=== PATIENT | female | born 1955 | race Caucasian/White ===

== ENCOUNTER 2019-04-02 02:09 | Outpatient (CLI) | payer OTHER, SELFPAY ==
[2019-04-02 12:03] LABS: ALT 19 U/L (12-78); AST 13 U/L (15-37); Albumin 3.5 g/dL (3.4-5.0); Alkaline Phosphatase 88 U/L (46-116); Anion Gap 9.9 mmol/L (3-11); BUN 15 mg/dL (7-18); Bilirubin, Total 0.6 mg/dL (0.2-1.0); CO2 26.1 mmol/L (21.0-32.0); CREATININE 0.78 mg/dL (0.55-1.02); Calcium 8.4 mg/dL (8.5-10.1); Chloride 104 mmol/L (98-107); Glucose 83 mg/dL (70-100); Sodium 140 mmol/L (136-145)
[2019-04-02 12:09] LABS: HCT 43.2 % (36.0-46.0); HGB 14.2 g/dL (12.0-15.5); Mean Corp. HGB Concentration 32.9 g/dL (32.0-36.0); Mean Corpuscular Hemoglobin 27.7 pg (27.0-33.0); Mean Corpuscular Volume 84.2 fL (80-95); Mean Platelet Volume 10.4 fL (8.0-11.0); Platelet Count 205 x1000/uL (130-400); RBC 5.13 m/cumm (4.00-5.20); RBC Distribution Width 13.3 % (11.7-14.6); White Blood Cell Count 3.51 k/cumm (4.4-10.8)
== END 2019-04-02 02:29 ==
DX: K62.5 Hemorrhage of anus and rectum (principal); R53.83 Other fatigue; Z80.0 Family history of malignant neoplasm of digestive organs
CPT/HCPCS: 36415; 80053; 85027

== ENCOUNTER 2020-08-10 09:01 | Outpatient (CLI) | payer OTHER, SELFPAY ==
[2020-08-10 13:25] LABS: ALT 17 U/L (14-59); AST 12 U/L (15-37); Albumin 3.7 g/dL (3.4-5.0); Alkaline Phosphatase 89 U/L (46-116); Anion Gap 3.4 mmol/L (3-11); BUN 12 mg/dL (7-18); Bilirubin, Total 0.7 mg/dL (0.2-1.0); CO2 30.6 mmol/L (21.0-32.0); CREATININE 0.75 mg/dL (0.55-1.02); Calcium 8.6 mg/dL (8.5-10.1); Chloride 106 mmol/L (98-107); Glucose 89 mg/dL (74-106); Potassium 4.6 mmol/L (3.5-5.1); Sodium 140 mmol/L (136-145); Total Protein 6.3 g/dL (6.4-8.2)
== END 2020-08-10 09:21 ==
DX: R53.83 Other fatigue (principal); Z68.31 Body mass index [BMI] 31.0-31.9, adult; R03.0 Elevated blood-pressure reading, without diagnosis of hypertension
CPT/HCPCS: 36415; 80053

== ENCOUNTER 2020-08-24 12:31 | Emergency (ER) | payer OTHER, SELFPAY ==
--- NOTE | 2020-08-24 12:30 | DI.RAD_ITS ---
EXAM: XR PELVIS AP CLINICAL HISTORY: Fall, low back pain. TECHNIQUE: 2D digital imaging was performed. COMPARISON: No exams were available for comparison FINDINGS: BONES: No acute fracture is present. No bony destructive lesion is seen. JOINTS: No dislocation present. No joint space narrowing is present. SOFT TISSUE: Normal. IMPRESSION: Unremarkable radiographs of the pelvis. DATA REPOSITORY: RADIATION DOSE DELIVERED:
[2020-08-24 12:35] VITALS: BP 166/94; PULSE 91; RESP 16; TEMP 37.2; O2SAT 100
--- NOTE | 2020-08-24 12:43 | ED.GENADUL_ITS ---
Discharge Plan Disposition Patient Disposition: HOME Condition: Stable Discharge Details Clinical Impression: Lumbar contusion Primary Care Provider: Vita Carmona ED Provider: Александр Penaloza Home Meds and New Rx's Prescriptions: New methocarbamol 500 mg tablet 500 mg PO Q6H PRN (Reason: Back pain or spasm) Qty: 14 RF: 0 Continued Complete Multivitamin tablet 1 tab PO DAILY RF: 0 calcium carb and citrate-vitD3 1 EACH tablet extended release 1 ea PO DAILY RF: 0 Discharge Instructions Instructions: Contusion in Adults (ED) Additional Instructions: Use ice 20 minutes at a time to reduce pain and swelling. May alternate with heat as we discussed. May continue Tylenol and/or ibuprofen as needed for pain. May use methocarbamol as prescribed, as needed for muscular pain and spasm. Return if you develop increasing pain, inability urinate, or any other acute concerns Medical Decision Making 65-year-old female slipped on wet ground and fell onto her back outside her place of work. She did not suffer a loss of consciousness and denies neck/chest/abdomen/thoracic pain. She complains of low back pain. She has mild diffuse tenderness of the lumbar spine without focal step-off or deformity appreciated. She has normal motor function of the lower extremity and sensation is intact including saddle distribution. Patient given parenteral analgesia, referred for plain radiographs. X-rays as read by Dr Walsh, unremarkable XR of pelvis, LSpine no acute fracture or subluxation. We will trial methocarbamol as needed for pain. She may use heat and/or ice at home. Discussed with the patient and her at the bedside prior to discharge. HPI General Mode of arrival: EMS . Date/Time Provider Initiated Documentation: 08/24/20 12:45 . Limitations to Documentation: no limitations . Information obtained by: patient . History of Present Illness 65 year old F presents to the emergency department with the chief complaint of Slip and fall, low back pain, described as moderate and similar to prior episodes, Quality is described as dull and constant, and is localized to the back. Patient reports no radiation. Patient started experiencing this minute(s) and it has been constant. Rest improves symptom(s), Movement worsens symptoms . Patient notes denies chest pain, shortness of breath, syncope and weakness. Patient did receive the following treatments prior to arrival, none Related Data Home Medications Medication Instructions Recorded Confirmed calcium carb and citrate-vitD3 1 ea PO DAILY 10/09/17 10/14/20 multivitamin,[id number]-[id number] 1 tab PO DAILY 07/15/18 08/24/20 methocarbamol 500 mg PO Q6H PRN #14 tab 08/24/20 Previous Rx's Medication Instructions Recorded methocarbamol 500 mg PO Q6H PRN #14 tab 08/24/20 Allergies Allergy/AdvReac Type Severity Reaction Status Date / Time No Known Allergies Allergy Verified 08/24/20 12:37 General Stated Complaint: Nk/Back Pain ZIGGY: 3 Review of Systems Narrative: No loss of consciousness. Denies head/neck/chest/thoracic back pain. No weakness or numbness. 6 systems reviewed and otherwise negative [facility] Medical History Elevated BP without diagnosis of hypertension Encounter for annual physical exam Increased body mass index (BMI) Surgical History Abdominal hysterectomy (~02/2013) section 1980,1982 Colonoscopy - MAC (08/26/17) Family History Mother , AGE 76 Diabetes Colorectal cancer Father , AGE 49 Heart disease Sister , AGE 38 Hyperlipidemia Breast cancer Sister , age 76 Diabetes Essential hypertension Parkinsons Anemia Sister Diabetes Maternal Grandfather Heart disease Paternal Grandfather , age 60 Heart disease Maternal Grandmother Diabetes Son No problems noted. Son No problems noted. 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 Pets and animals: Yes Pets and animals: dog(s) Sexually active: Yes Do you think of yourself as: straight/heterosexual Current gender identity: female What is your relationship status?: How often do you talk on the phone with friends or family?: three or more times per week How often do you get together with friends or relatives?: three or more times per week Do you belong to any clubs or organized social groups?: no Panel score (0-1 are the most socially isolated patients): 2 What type of physical activity do you participate in: walking Duration: 15-30 minutes/day Frequency: 1-2 times per week Seatbelt use: always 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 Pleasant, well groomed, interactive. HEAD: Normocephalic, atraumatic ENT: Mucous membranes moist, oropharynx unremarkable, External ear exam unremarkable EYES: PERRL, EOMI NECK: Full ROM, no JAKI, no menigismus CHEST/RESP: Nontender, clear to auscultation bilateral, no wheeze/rhonchi/rales CARDIOVASCULAR: RRR, no murmur, rub [place]. 2+ Rad pulse bilateral ABDOMEN: Soft, nontender, no mass. +Bowel sounds Back: Diffuse lumbar tenderness to palpation. No thoracic tenderness or step- off. EXT: Full ROM, no edema, no rash, normal sensation throughout. Neuro: Grossly normal neurologic exam, conversant, interactive. Psych: Speech fluent, thoughts congruent, affect normal Course Vital Signs Vital signs: Vital Signs Temperature 37.2 C 08/24/20 12:35 Pulse 91 H 08/24/20 12:35 Respiratory Rate 16 08/24/20 12:35 Blood Pressure 166/94 H 08/24/20 12:35 Pulse Oximetry 100 08/24/20 12:35 Temperature 37.2 C 08/24/20 12:35 Temperature Source Tympanic 08/24/20 12:35 Pulse 91 H 08/24/20 12:35 Respiratory Rate 16 08/24/20 12:35 Respiratory Effort Non-Labored 08/24/20 12:37 Blood Pressure 166/94 H 08/24/20 12:35 Blood Pressure Position Sitting 08/24/20 12:35 Pulse Oximetry 100 08/24/20 12:35 Oxygen Delivery Method Room Air 08/24/20 12:35 Oxygen Flow Rate 0 08/24/20 12:35 Pain Level 6 08/24/20 12:35
[2020-08-24] MEDS: ACETAMINOPHEN 1,000 MG/100 ML BTL 400 MG IVPB (13:01)
[2020-08-24] MEDS: Ketorolac 30 MG/ML VIAL IVP (13:01)
--- NOTE | 2020-08-24 14:04 | DI.RAD_ITS ---
EXAM: XR LUMBAR SPINE AP, LAT CLINICAL HISTORY: fall, L spine pain. TECHNIQUE: 2D digital imaging was performed. COMPARISON: CR THORACIC SPINE from 04/29/2016 DX DEXA BONE DENSITY WITH DERIK from 08/06/2017 FINDINGS: BONES: No fracture or destructive lesion. Vertebral bodies are unremarkable. No facet hypertrophy amos ntified. DISKS: Intervertebral disc spaces are maintained. ALIGNMENT: Lumbar spinal alignment is within normal limits. SOFT TISSUE: Normal. IMPRESSION: No acute fractures or subluxations seen in the lumbar spine. DATA REPOSITORY: RADIATION DOSE DELIVERED:
[2020-08-24 14:43] VITALS: BP 150/91; PULSE 88; RESP 16; TEMP 36.9; O2SAT 100
== END 2020-08-24 14:43 | disposition home or self-care (01) ==
PROVIDERS: Emergency Provider Emergency Medicine
DX: S30.0XXA Contusion of lower back and pelvis, initial encounter (principal); W18.39XA Other fall on same level, initial encounter
CPT/HCPCS: 96365; 96375; 99284; 72100; 72170; J0131; J1885

== ENCOUNTER 2020-12-06 01:46 | Outpatient (CLI) | payer OTHER, SELFPAY ==
--- NOTE | 2020-12-06 11:45 | DI.MRI_ITS ---
EXAM: MR LOWER JOINT LT WO CLINICAL HISTORY: Continued left hip pain, s/p PT for 6 weeks,S/P FALL, W19.XXXA. TECHNIQUE: Multiplanar multisequence MRI was performed. COMPARISON: CR XR PELVIS AP from 08/24/2020 FINDINGS: The patient is status post hysterectomy. There is mild sigmoid diverticulosis. The bladder is unre markable. Marrow signal is normal. There is no evidence of fracture. No joint effusions or soft tissue hemato mas are seen. The SI joints and pubic symphysis are unremarkable. There is edema in the soft tissue s around the greater trochanter. No tendon disruption or focal fluid collection is seen. IMPRESSION: Soft tissue edema around the left greater trochanter and gluteus medius and minimus tendons could be secondary to direct trauma or represent mild distal muscle tear or tendinopathy. DATA REPOSITORY:
== END 2020-12-06 02:06 ==
PROVIDERS: Visit Provider Nurse Practitioner Family
DX: R60.0 Localized edema (principal); M25.552 Pain in left hip
CPT/HCPCS: 73721

== ENCOUNTER 2021-08-07 03:01 | Outpatient (CLI) | payer OTHER, SELFPAY ==
[2021-08-07 12:50] LABS: ALT 23 U/L (14-59); AST 13 U/L (15-37); Albumin 3.9 g/dL (3.4-5.0); Alkaline Phosphatase 92 U/L (46-116); Anion Gap 8.1 mmol/L (3-11); BUN 15 mg/dL (7-18); Bilirubin, Total 0.7 mg/dL (0.2-1.0); CO2 28.9 mmol/L (21.0-32.0); CREATININE 0.9 mg/dL (0.55-1.02); Calcium 8.6 mg/dL (8.5-10.1); Calculated LDL 103 mg/dL (<100); Chloride 104 mmol/L (98-107); Cholesterol 183 mg/dL (<200); Glucose 84 mg/dL (74-106); HDL Cholesterol 66 mg/dL (40-60); Potassium 4.2 mmol/L (3.5-5.1); Sodium 141 mmol/L (136-145); Total Protein 6.5 g/dL (6.4-8.2); Triglyceride 70 mg/dL (<150)
== END 2021-08-07 03:02 | disposition home or self-care (01) ==
DX: E78.5 Hyperlipidemia, unspecified; R03.0 Elevated blood-pressure reading, without diagnosis of hypertension; Z00.00 Encounter for general adult medical examination without abnormal findings
CPT/HCPCS: 36415; 80053; 80061

== ENCOUNTER 2022-08-10 13:21 | Outpatient (REF) | payer MEDICARE, SELFPAY | END 2022-08-10 13:22 | disposition home or self-care (01) | LOC: LBN 13:21 | PROVIDERS: Visit Provider Nurse Practitioner Family | DX: J02.9 Acute pharyngitis, unspecified (principal) | CPT/HCPCS: 87070 ==

== ENCOUNTER 2023-04-11 21:24 | Outpatient (REF) | payer MEDICARE, SELFPAY | END 2023-04-11 21:25 | disposition home or self-care (01) | LOC: LBN 21:24 | PROVIDERS: PCP Nurse Practitioner Family; Visit Provider Nurse Practitioner Family | DX: N30.90 Cystitis, unspecified without hematuria (principal) | CPT/HCPCS: 87077; 87086; 87186 ==

== ENCOUNTER 2023-04-17 04:12 | Outpatient (CLI) | payer MEDICARE, SELFPAY ==
[2023-04-17 12:21] LABS: Abs Immature Grans 0.04 10^3/uL (0.0-0.06); Absolute Basophil Count 0.04 10^3/uL (0.0-0.2); Absolute Lymphocyte Count 1.07 10^3/uL (1.2-3.4); Absolute Monocyte Count 0.39 10^3/uL (0.1-0.8); Absolute Neutrophil Count 2.79 10^3/uL (1.2-6.7); Basophils % 0.9; Eosinophils % 2.3; HCT 42.8 % (36.0-46.0); HGB 14.2 g/dL (11.2-15.7); Immature Grans % 0.9; Lymphocytes % 24.2; MCH 27.9 pg (27.0-33.0); MCHC 33.2 % (32.0-36.0); MCV 84 fL (80-95); MPV 9.6 fL (8.0-11.0); Monocytes % 8.8; Neutrophils % 62.9; Platelet Count 302 10^3/uL (130-400); RBC 5.09 10^6/uL (3.93-5.22); RDW 13.4 % (11.7-14.6); RDW-SD 41.3 fL; WBC 4.43 10^3/uL (4.4-10.8)
[2023-04-17 12:33] LABS: ALT 28 U/L (14-59); AST 19 U/L (15-37); Albumin 3.6 g/dL (3.4-5.0); Alkaline Phosphatase 83 U/L (46-116); Anion Gap 4.7 mmol/L (3-11); BUN 15 mg/dL (7-18); Bilirubin, Total 0.6 mg/dL (0.2-1.0); CO2 28.3 mmol/L (21.0-32.0); CREATININE 0.9 mg/dL (0.55-1.02); Calcium 8.5 mg/dL (8.5-10.1); Chloride 104 mmol/L (98-107); Estimated GFR 70.07 (mL/min/1.73m2); Glucose 93 mg/dL (74-106); Potassium 3.8 mmol/L (3.5-5.1); Sodium 137 mmol/L (136-145); Total Protein 6.7 g/dL (6.4-8.2)
[2023-04-17 12:40] LABS: Hemoglobin A1C 4.6 % (<5.7)
[2023-04-18 10:27] LABS: Lyme Ab w Rflx to Lyme Confirm Negative (Negative)
[2023-04-20 15:57] LABS: Anaplasma phagocytophilum Negative (Negative); B. miyamotoi PCR Negative (Negative); Babesia divergens/MO-1 Negative (Negative); Babesia duncani Negative (Negative); Babesia microti Negative (Negative); Ehrlichia chaffeensis Negative (Negative); Ehrlichia ewingii/canis Negative (Negative); Ehrlichia muris eauclairensis Negative (Negative)
== END 2023-04-17 04:13 | disposition home or self-care (01) ==
LOC: LOS 04:12
PROVIDERS: Nurse Practitioner Family; PCP Nurse Practitioner Family; Visit Provider Nurse Practitioner Family
DX: R73.01 Impaired fasting glucose (principal); R50.9 Fever, unspecified; N30.90 Cystitis, unspecified without hematuria; W57.XXXD Bitten or stung by nonvenomous insect and other nonvenomous arthropods, subsequent encounter; M25.561 Pain in right knee; M25.562 Pain in left knee; M79.604 Pain in right leg; M79.605 Pain in left leg
CPT/HCPCS: 36415; 80053; 87798; 83036; 85025; 86618

== ENCOUNTER 2024-05-05 16:23 | Emergency (ER) | payer MEDICARE, SELFPAY ==
[2024-05-05 16:37] VITALS: BP 182/107; PULSE 98; RESP 16; TEMP 37.2; O2SAT 97
[2024-05-05 16:59] VITALS: BP 182/107; PULSE 98; RESP 20; TEMP 37.2; O2SAT 97
--- NOTE | 2024-05-05 17:17 | ED.GENADUL_ITS ---
Discharge Plan Discharge Details Chief Complaint: FlankPain Primary Care Provider: Johan Zamarripa ED Provider: Judi Davidson Home Meds and New Rx's Prescriptions: No Action Complete Multivitamin tablet 1 tab PO DAILY ibuprofen 200 mg capsule 200 mg PO Q6H PRN calcium carb and citrate-vitD3 1 EACH tablet extended release 1 ea PO DAILY HPI General Date/Time Provider Initiated Documentation: 05/05/24 16:53 . HPI Narrative: Syeda is a 68-year-old female who presents to the emergency department today for evaluation of right flank pain. She reports that this started 3 days ago, has been worsening in intensity since onset. This is elicited with any movement, has been slightly improved with ibuprofen/Tylenol and heating pads. She denies associated fever/chills, rash, shortness of breath, chest pain, nausea/vomiting, change in bowel or bladder function, blood in urine. She does have a history abdominal surgeries, had full hysterectomy and multiple C-sections. No known digestive disorders or abnormal colonoscopies. No history of bleeding disorders. No recent trauma, saddle anesthesia, weakness/numbness in her legs. Related Data Home Medications Medication Instructions Recorded Confirmed calcium carb,cit ER 600 mg-vit D3 1 ea PO DAILY 08/19/17 05/05/24 12.5 mcg (500 unit) tablet,ext.rel multivitamin,zj-pmrq-lytrawzo 1 tab PO DAILY 07/15/18 05/05/24 (Complete Multivitamin tablet) ibuprofen 200 mg capsule 200 mg PO Q6H PRN 08/28/21 05/05/24 Allergies Allergy/AdvReac Type Severity Reaction Status Date / Time No Known Allergies Allergy Verified 05/05/24 16:01 General Stated Complaint: FlankPain ZIGGY: 3 Review of Systems Narrative: see HPI Exam Const General: cooperative, healthy appearing, comfortable and no acute distress Nutritional Appearance: average body habitus Resp Effort & Inspection: normal respiratory effort and able to speak in complete sentences Auscultation: clear to auscultation bilaterally Cardio Rate: regular rate Rhythm: regular rhythm GI Inspection: no abdominal wall ecchymosis, no edema and non-distended Palpation: soft, not rigid and tender (R flank) Auscultation: normal bowel sounds Course Vital Signs Vital signs: Vital Signs Temperature 37.2 C 05/05/24 16:37 Pulse 98 H 05/05/24 16:37 Respiratory Rate 16 05/05/24 16:37 Blood Pressure 182/107 H 05/05/24 16:37 Pulse Oximetry 97 05/05/24 16:37 Temperature 37.2 C 05/05/24 16:59 Pulse 98 H 05/05/24 16:59 Respiratory Rate 20 05/05/24 16:59 Respiratory Effort Normal 05/05/24 16:59 Blood Pressure 182/107 H 05/05/24 16:59 Pulse Oximetry 97 05/05/24 16:59 Oxygen Delivery Method Room Air 05/05/24 16:59 Pain Level 8 05/05/24 16:59 Medical Decision Making Syeda is a 68-year-old female who presents to the emergency department today for evaluation of right flank pain. She reports that this started 3 days ago, has been worsening in intensity since onset. This is elicited with any movement, has been slightly improved with ibuprofen/Tylenol and heating pads. She denies associated fever/chills, rash, shortness of breath, chest pain, nausea/vomiting, change in bowel or bladder function, blood in urine. She does have a history abdominal surgeries, had full hysterectomy and multiple C-sections. No known digestive disorders or abnormal colonoscopies. No history of bleeding disorders. No recent trauma, saddle anesthesia, weakness/numbness in her legs. Physical exam remarkable for tenderness to palpation along right flank just below ribs. No overlying rashes or ecchymosis. Abdomen is soft, nondistended, otherwise nontender to palpation with normoactive bowel sounds. No CVA tenderne ss. Easy work of breathing, lung sounds clear bilaterally. Normal heart sounds. DDx includes but is not limited to: Biliary duct obstruction, gallstone, cholecystitis, pyelonephritis, nephrolithiasis, gastritis I independently interpreted the following tests: CBC, CMP and lipase reassuring. CT scan reassuring, there are calcified gallstones present within the gallbladder. Inflammatory bowel wall thickening is not consistent with clinical picture, likely unrelated. While in the emergency department Syeda received IV Toradol with good improvement in symptoms. Unclear etiology of abdominal pain, workup today was reassuring. Possible cholelithiasis. Recommend PCP follow-up for outpatient ultrasound for further evaluation. She does have a colonoscopy scheduled for this fall. Reviewed red flags indicate need for return to emergency care, as well as symptomatic management. Imaging Data Radiologic Study: Radiologist's impression: PROCEDURE INFORMATION: Exam: CT Abdomen And Pelvis With Contrast Exam date and time: 05/05/2024 7:35 PM Age: 68 years old Clinical indication: Other: R flank pain TECHNIQUE: Imaging protocol: Computed tomography of the abdomen and pelvis with contrast. Radiation optimization: All CT scans at this facility use at least one of these dose optimization techniques: automated exposure control; mA and/or kV adjustment per patient size (includes targeted exams where dose is matched to clinical indication); or iterative reconstruction. Contrast material: OMNIPAQUE 350; Contrast volume: 100 ml; Contrast route: INTRAVENOUS (IV); COMPARISON: CR XR PELVIS AP 08/24/2020 1:34 PM FINDINGS: Lungs: The lungs are normal. Pleural spaces: There is no evidence of pneumothorax. There are no pleural effusions present. Heart: The cardiac structures are normal. Liver: Low-attenuation lesion measuring 5.5 mm within the left liver lobe series 4, image 9 and multiple smaller low-attenuation lesions seen within the right and left liver lobes consistent with small hepatic cysts. Gallbladder and biliary ducts: There are calcified gallstones present within the gallbladder lumen. There is no wall thickening or pericholecystic fluid. Findings consistant with cholelitiasis without cholecystitis. Pancreas: There is mild pancreatic atrophy and fatty replacement. Spleen: The spleen is enlarged. The spleen otherwise appears normal. Adrenal glands: The adrenal glands are normal. Kidneys and ureters: The kidneys are normal. Stomach and bowel: There are fluid-filled loops of small bowel with air-fluid levels. No significant bowel wall thickening or inflammatory changes. No evidence of obstruction. Consider early enteritis. There is no evidence of intestinal obstruction. There is focal narrowing and mild inflammatory bowel wall thickening involving the mid transverse colon, mid and distal descending colon. Colonic fatty mural change present, most often a normal variation but sometimes seen in patients with chronic inflammatory process such as ulcerative colitis or Crohn's disease.There is bowel wall edema. No significant inflammatory change seen within the peritoneal fat and mesentery. This likely represents mild early acute colitis. An underlying mass is not excluded. Mild diverticulosis is present in the sigmoid and descending colon. No evidence of diverticulitis. Appendix: A normal appendix is identified. There is no evidence of distention or periappendiceal inflammation to suggest appendicitis. Intraperitoneal space: There is no free intraperitoneal air. There is no evidence of free intraperitoneal or pelvic fluid. Vasculature: The aorta is unremarkable without evidence of significant atherosclerosis or aneurysmal disease. The peripheral arterial vascular system visualized is unremarkable. The portal venous system visualized is unremarkable. The peripheral venous vascular system visualized is unremarkable. Lymph nodes: There is no evidence of lymphadenopathy. Urinary bladder: There is mild nonspecific bladder wall thickening. This may be related to incomplete bladder filling. Reproductive: There has been a hysterectomy. No adnexal cysts or masses are identified. Bones/joints: There is severe compression fracture of the 12th thoracic vertebral body. This has shown severe progression compared to the prior study of 08/24/2020 and is age indeterminate at this point. Acute compression fracture superimposed on chronic compression fracture cannot be excluded. Soft tissues: The extra-abdominal soft tissues are normal. IMPRESSION: 1. There is severe compression fracture of the 12th thoracic vertebral body. This has shown severe progression compared to the prior study of 08/24/2020 and is age indeterminate at this point. Acute compression fracture superimposed on chronic compression fracture cannot be excluded. 2. There are fluid-filled loops of small bowel with air-fluid levels. No significant bowel wall thickening or inflammatory changes. No evidence of obstruction. Consider early enteritis. 3. There is focal narrowing and mild inflammatory bowel wall thickening involving the mid transverse colon, mid and distal descending colon. Colonic fatty mural change present, most often a normal variation but sometimes seen in patients with chronic inflammatory process such as ulcerative colitis or Crohn's disease.There is bowel wall edema. No significant inflammatory change seen within the peritoneal fat and mesentery. This likely represents mild early acute colitis. An underlying mass is not excluded. 4. Mild diverticulosis is present in the sigmoid and descending colon. No evidence of diverticulitis. 5. Findings consistant with cholelitiasis without cholecystitis. Quality:[facility] Health Related Social Needs: No Data to Display PFSH All Active Problems (Updated 08/25/22 @ 10:58 by Johan Harrington NP) Seborrheic keratoses (Acute) Tendonitis of left hip (Acute) Fall (Acute) Elevated BP without diagnosis of hypertension (Acute) Encounter for annual physical exam (Acute) Increased body mass index (BMI) (Acute) Painless rectal bleeding (Acute) Fatigue (Acute) Actinic keratoses (Acute) Family history of GI malignancy (Acute) colon ca-mother. Last colonoscopy was 08/26/17. She does not think she wants to repeat in the future. Family hx-breast malignancy (Acute) Sister at age 38. She continue with yearly mammograms. Surgical History Abdominal hysterectomy (~02/2013) section 1980,1982 Colonoscopy - MAC (08/26/17) Family History Mother , AGE 76 Diabetes Colorectal cancer Father , AGE 49 Heart disease Sister , AGE 38 Hyperlipidemia Breast cancer Sister , age 76 Diabetes Essential hypertension Parkinsons Anemia Sister Diabetes Maternal Grandfather Heart disease Paternal Grandfather , age 60 Heart disease Maternal Grandmother Diabetes Son No problems noted. Son No problems noted. Social History (Updated 09/10/23 @ 07:56 by Janelle Watson) Smoking/Tobacco Use Status: Former Tobacco Use tobacco type: cigarettes Quit Date: 11/11/79 Second Hand Exposure: Yes Smoking risk assessment performed?: Yes Alcohol Intake: current Alcohol Intake frequency: a few times a month Alcohol type: wine Drug use: Never Substance use type: does not use Adopted: No Caregiver/Support person: No Foster care: No Household members: spouse Housing: house Number of Children: 2 number of grandchildren: 3 Communication Needs: None Education Level: college Do you need help understanding health information?: Rarely current occupation: Retired Pets and animals: Yes Pets and animals: dog(s) Sexually active: Yes Do you think of yourself as: straight/heterosexual Current gender identity: female What is your relationship status?: How often do you talk on the phone with friends or family?: twice per week How often do you get together with friends or relatives?: twice per week Do you belong to any clubs or organized social groups?: no Panel score (0-1 are the most socially isolated patients): 2 Agree to transfusion: Yes Seatbelt use: always 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
--- NOTE | 2024-05-05 17:45 | DI.CT_ITS ---
Exam(s) CT ABDOMEN PELVIS W EXAM: CT ABDOMEN PELVIS W CLINICAL HISTORY: R sided flank pain. TECHNIQUE: Imaging Protocol: Axial computed tomography images with coronal and sagittal reformatted images were created and reviewed CONTRAST MATERIAL: Intravenous: Omnipaque 350 Contrast volume:100 ml Oral: / no COMPARISON: CT ABD PELVIS WITH CONTRAST from 12/12/2012 CR XR LUMBAR SPINE AP, LAT from 08/24/2020 FINDINGS: ABDOMEN and PELVIS: Lung Bases: No acute findings. Liver: Normal density. No suspicious mass. Gallbladder and biliary tract: Cholelithiasis again noted. No gallbladder wall thickening or abnorma l distension. No biliary dilation. Pancreas: Normal density. No abnormal calcifications or inflammatory process. No evidence of mass. Spleen: Normal. Kidneys: Normal size, contour and axis. No radiodense stones. No obstructive uropathy. No suspicious masses seen. Adrenal glands: No masses seen. Vasculature: Abdominal aorta non-dilated. Soft tissues: Unremarkable. Bladder: No gross wall thickening. No calculi.No focal mass. Bowel: No obstruction. : Mainly empty. Intramural fat. No evidence of inflammation. Diverticulos is. Appendix normal. Peritoneal cavity: No ascites. No focal collection. No mesenteric inflammatory response. Bones: Severe compression fracture of T12, asymmetric toward the left side. This appears old but has worsened when compared with prior plain film. Reproductive organs: Status post hysterectomy. Lymph nodes: No pathologically enlarged lymph nodes. IMPRESSION:: Severe compression fracture T12, appears old. No acute abnormality in the abdomen or pelvis. Cholelithiasis without evidence of cholecystitis. Diverticulosis without evidence of diverticulitis. RADIATION DOSE DELIVERED: 977.4mGy.cm Total DLP DATA REPOSITORY: All CT scans at this facility are submitted to the National Radiology Data Registry (NRDR) Dose Index Registry (DIR) with the [employer] (ACR). RADIATION OPTIMIZATION: All CT scans at this facility use at least one of these dose optimization te chniques: automated exposure control; mA and/or kV adjustment per patient size (includes targeted exa ms where dose is matched to clinical indication); or iterative reconstruction.
[2024-05-05 18:01] LABS: Abs Immature Grans 0.02 10^3/uL (0.0-0.06); Absolute Basophil Count 0.04 10^3/uL (0.0-0.2); Absolute Lymphocyte Count 1.04 10^3/uL (1.2-3.4); Absolute Monocyte Count 0.41 10^3/uL (0.1-0.8); Absolute Neutrophil Count 3.22 10^3/uL (1.2-6.7); Basophils % 0.8 %; Eosinophils % 2.1 %; HCT 43.6 % (36.0-46.0); HGB 14.3 g/dL (11.2-15.7); Immature Grans % 0.4 %; Lymphocytes % 21.5 %; MCH 28.1 pg (27.0-33.0); MCHC 32.8 % (32.0-36.0); MCV 86 fL (80-95); MPV 9.6 fL (8.0-11.0); Monocytes % 8.5 %; Neutrophils % 66.7 %; Platelet Count 208 10^3/uL (130-400); RBC 5.09 10^6/uL (3.93-5.22); RDW 12.8 % (11.7-14.6); RDW-SD 39.8 fL; WBC 4.83 10^3/uL (4.4-10.8)
[2024-05-05 18:18] LABS: ALT 17 U/L (14-59); AST 11 U/L (15-37); Albumin 3.7 g/dL (3.4-5.0); Alkaline Phosphatase 92 U/L (46-116); Anion Gap 7.7 mmol/L (3-11); BUN 16 mg/dL (7-18); Bilirubin, Total 0.65 mg/dL (0.2-1.0); CO2 27.3 mmol/L (21.0-32.0); Calcium 8.4 mg/dL (8.5-10.1); Chloride 106 mmol/L (98-107); Estimated GFR 61.36 (mL/min/1.73m2); Glucose 84 mg/dL (74-106); Lipase 19 U/L (16-77); Potassium 3.6 mmol/L (3.5-5.1); Sodium 141 mmol/L (136-145); Total Protein 6.6 g/dL (6.4-8.2)
[2024-05-05 18:39] VITALS: BP 167/90; PULSE 97; RESP 20; O2SAT 94
[2024-05-05 18:40] LABS: Bilirubin Negative (Negative); Blood Negative (Negative); Clarity Clear (Clear); Glucose Negative (Negative); Ketones Negative (Negative); Leukocyte Esterase Trace (Negative); Nitrite Negative (Negative); Specific Gravity 1.025 (1.005-1.025); Urobilinogen 0.2 mg/dL (Up to 0.2); pH 5.5 (5-8)
[2024-05-05 18:48] LABS: Bacteria Rare HPF (Negative); C & S Indicated? No; Casts Negative LPF (Negative); Crystals Negative HPF (Negative); Epithelial Cells Few HPF (Negative); Mucus Trace (Negative); RBC 0-2 HPF (0-2)
[2024-05-05] MEDS: Normal Saline - Diluent 50 ML VIAL IJ (19:35)
[2024-05-05] MEDS: Omnipaque 350 MG/ML 100 ML BTL IJ (19:35)
--- NOTE | 2024-05-05 20:44 | DI.VRAD_ITS ---
PROCEDURE INFORMATION: Exam: CT Abdomen And Pelvis With Contrast Exam date and time: 05/05/2024 7:35 PM Age: 68 years old Clinical indication: Other: R flank pain TECHNIQUE: Imaging protocol: Computed tomography of the abdomen and pelvis with contrast. Radiation optimization: All CT scans at this facility use at least one of these dose optimization techniques: automated exposure control; mA and/or kV adjustment per patient size (includes targeted exams where dose is matched to clinical indication); or iterative reconstruction. Contrast material: OMNIPAQUE 350; Contrast volume: 100 ml; Contrast route: INTRAVENOUS (IV); COMPARISON: CR XR PELVIS AP 08/24/2020 1:34 PM FINDINGS: Lungs: The lungs are normal. Pleural spaces: There is no evidence of pneumothorax. There are no pleural effusions present. Heart: The cardiac structures are normal. Liver: Low-attenuation lesion measuring 5.5 mm within the left liver lobe series 4, image 9 and multiple smaller low-attenuation lesions seen within the right and left liver lobes consistent with small hepatic cysts. Gallbladder and biliary ducts: There are calcified gallstones present within the gallbladder lumen. There is no wall thickening or pericholecystic fluid. Findings consistant with cholelitiasis without cholecystitis. Pancreas: There is mild pancreatic atrophy and fatty replacement. Spleen: The spleen is enlarged. The spleen otherwise appears normal. Adrenal glands: The adrenal glands are normal. Kidneys and ureters: The kidneys are normal. Stomach and bowel: There are fluid-filled loops of small bowel with air-fluid levels. No significant bowel wall thickening or inflammatory changes. No evidence of obstruction. Consider early enteritis. There is no evidence of intestinal obstruction. There is focal narrowing and mild inflammatory bowel wall thickening involving the mid transverse colon, mid and distal descending colon. Colonic fatty mural change present, most often a normal variation but sometimes seen in patients with chronic inflammatory process such as ulcerative colitis or Crohn's disease.There is bowel wall edema. No significant inflammatory change seen within the peritoneal fat and mesentery. This likely represents mild early acute colitis. An underlying mass is not excluded. Mild diverticulosis is present in the sigmoid and descending colon. No evidence of diverticulitis. Appendix: A normal appendix is identified. There is no evidence of distention or periappendiceal inflammation to suggest appendicitis. Intraperitoneal space: There is no free intraperitoneal air. There is no evidence of free intraperitoneal or pelvic fluid. Vasculature: The aorta is unremarkable without evidence of significant atherosclerosis or aneurysmal disease. The peripheral arterial vascular system visualized is unremarkable. The portal venous system visualized is unremarkable. The peripheral venous vascular system visualized is unremarkable. Lymph nodes: There is no evidence of lymphadenopathy. Urinary bladder: There is mild nonspecific bladder wall thickening. This may be related to incomplete bladder filling. Reproductive: There has been a hysterectomy. No adnexal cysts or masses are identified. Bones/joints: There is severe compression fracture of the 12th thoracic vertebral body. This has shown severe progression compared to the prior study of 08/24/2020 and is age indeterminate at this point. Acute compression fracture superimposed on chronic compression fracture cannot be excluded. Soft tissues: The extra-abdominal soft tissues are normal. IMPRESSION: 1. There is severe compression fracture of the 12th thoracic vertebral body. This has shown severe progression compared to the prior study of 08/24/2020 and is age indeterminate at this point. Acute compression fracture superimposed on chronic compression fracture cannot be excluded. 2. There are fluid-filled loops of small bowel with air-fluid levels. No significant bowel wall thickening or inflammatory changes. No evidence of obstruction. Consider early enteritis. 3. There is focal narrowing and mild inflammatory bowel wall thickening involving the mid transverse colon, mid and distal descending colon. Colonic fatty mural change present, most often a normal variation but sometimes seen in patients with chronic inflammatory process such as ulcerative colitis or Crohn's disease.There is bowel wall edema. No significant inflammatory change seen within the peritoneal fat and mesentery. This likely represents mild early acute colitis. An underlying mass is not excluded. 4. Mild diverticulosis is present in the sigmoid and descending colon. No evidence of diverticulitis. 5. Findings consistant with cholelitiasis without cholecystitis. Dictated and Authenticated by: Guanako Chan MD. Ordering:RAMIRO Lau MD
--- NOTE | 2024-05-05 21:15 | NUR.NOTE ---
Referral to PCP (Johan Harrington) for R Flank pain within 1-2 weeks Nursing Note:
== END 2024-05-05 21:17 | disposition home or self-care (01) ==
PROVIDERS: Emergency Provider Nurse Practitioner Family; PCP Nurse Practitioner Family
DX: R10.9 Unspecified abdominal pain (principal); Z90.710 Acquired absence of both cervix and uterus; K80.20 Calculus of gallbladder without cholecystitis without obstruction
CPT/HCPCS: 36415; 80053; 83690; 99285; 74177; 81003; 81015; 85025; 99284; J3490

== ENCOUNTER 2024-05-05 16:27 | Outpatient (REF) | payer MEDICARE, SELFPAY | END 2024-05-05 16:28 | disposition home or self-care (01) | LOC: LBN 16:27 | PROVIDERS: PCP Nurse Practitioner Family; Visit Provider Nurse Practitioner Family | DX: R30.0 Dysuria (principal); R10.11 Right upper quadrant pain | CPT/HCPCS: 87086 ==

== ENCOUNTER → 2024-05-08 09:43 | Outpatient (CLI) | payer MEDICARE, SELFPAY ==
--- NOTE | 2024-05-08 08:15 | DI.US_ITS ---
Exam(s) US ABDOMEN EXAM: US ABDOMEN CLINICAL HISTORY: right flank pain, abd pain, thickening of wall gallbladder TECHNIQUE: Ultrasound abdomen performed using standard protocol. COMPARISON: CT CT ABDOMEN PELVIS W from 05/05/2024 FINDINGS: ABDOMINAL AORTA AND IVC: Visualized portions normal caliber. PANCREAS: Normal where visualized. LIVER: The liver measures 14.5 cm long. There is normal echogenicity. Hepatopetal flow in the Willian l Vein. GALLBLADDER:Cholelithiasis is present. Note is made of the tcuz-weqb-[id number] triad appearance of the gallbladder. This limits evaluation of the gallbladder. No pericholecystic fluid identified. BILIARY SYSTEM: Common bile duct could not be visualized on this examination. No intrahepatic biliar y ductal dilatation is seen. SMITH'S SIGN: Negative. KIDNEYS: Kidneys are symmetric in size. No evidence of renal calculi. No evidence of hydronephrosis. No renal mass or cyst identified. SPLEEN: Not enlarged. ASCITES: None seen. IMPRESSION: 1. Multiple stones are seen within the gallbladder creating a qjwx-cfwo-hfpbxg triad limiting evaluat ion of the gallbladder. No definite pericholecystic fluid is seen. DATA REPOSITORY:
== END ==
PROVIDERS: PCP Nurse Practitioner Family; Visit Provider Nurse Practitioner Family
DX: R10.9 Unspecified abdominal pain (principal); K82.8 Other specified diseases of gallbladder
CPT/HCPCS: 76700

== ENCOUNTER 2024-05-10 13:32 | Observation (INO) | payer MEDICARE, SELFPAY ==
[2024-05-10 13:35] VITALS: BP 148/82; PULSE 96; RESP 18; TEMP 37.6; O2SAT 96
[2024-05-10 14:08] LABS: Lactate 1.4 mmol/L (0.6-1.4)
[2024-05-10] MEDS: MORPHine 10 MG/ML VIAL 2 MG IVP ×2 (14:08→17:15)
[2024-05-10 14:14] LABS: Abs Immature Grans 0.01 10^3/uL (0.0-0.06); Absolute Basophil Count 0.04 10^3/uL (0.0-0.2); Absolute Eosinophil Count 0.09 10^3/uL (0.0-0.7); Absolute Lymphocyte Count 1.08 10^3/uL (1.2-3.4); Absolute Monocyte Count 0.43 10^3/uL (0.1-0.8); Absolute Neutrophil Count 3.47 10^3/uL (1.2-6.7); Basophils % 0.8 %; Eosinophils % 1.8 %; HGB 14.9 g/dL (11.2-15.7); Immature Grans % 0.2 %; Lymphocytes % 21.1 %; MCHC 33.1 % (32.0-36.0); MCV 85 fL (80-95); MPV 9.6 fL (8.0-11.0); Monocytes % 8.4 %; Neutrophils % 67.7 %; Platelet Count 213 10^3/uL (130-400); RBC 5.32 10^6/uL (3.93-5.22); RDW 12.9 % (11.7-14.6); WBC 5.12 10^3/uL (4.4-10.8)
--- NOTE | 2024-05-10 14:17 | W.ED.GENAD ---
Discharge Plan Discharge Details Chief Complaint: FlankPain Primary Care Provider: Johan Zamarripa ED Provider: Judi Davidson Home Meds and New Rx's Prescriptions: No Action Complete Multivitamin tablet 1 tab PO DAILY ibuprofen 200 mg capsule 200 mg PO Q6H PRN methocarbamol 500 mg tablet 500 mg PO Q6H PRN (Reason: Back pain or spasm) Qty: 30 0RF calcium carb and citrate-vitD3 1 EACH tablet extended release 1 ea PO DAILY HPI General Date/Time Provider Initiated Documentation: 05/10/24 13:49. HPI Narrative: Syeda is a 68-year-old female presents to the emergency department today for evaluation of worsening right flank pain that radiates to between her shoulder blades. She reports that pain started approximately 1 week ago, has been seen in the emergency department and had outpatient ultrasound performed, significant for gallstones. Pain has not moved since onset, she says it has been consistently in the same place since initial workup. This morning she has had worsening pain after eating breakfast, says it is a 9 out of 10 pain. She also had a bowel movement with diarrhea that was frankly bloody. Denies fever/chills, headache, dizziness, palpitations, chest pain, shortness of breath, nausea/vomiting, change in urine output, dysuria/hematuria, saddle anesthesia, weakness/numbness in extremities. She has had rectal bleeding in the past attributed to fissures, has a colonoscopy upcoming this fall. She does have a history of abdominal surgeries, hysterectomy and multiple C-sections. No known digestive disorders, bleeding disorders, recent trauma. Related Data Home Medications Medication Instructions Recorded Confirmed calcium carb,cit ER 600 mg-vit D3 1 ea PO DAILY 08/19/17 05/10/24 12.5 mcg (500 unit) tablet,ext.rel multivitamin,cm-pyag-gintqque 1 tab PO DAILY 07/15/18 05/10/24 (Complete Multivitamin tablet) ibuprofen 200 mg capsule 200 mg PO Q6H PRN 08/28/21 05/10/24 methocarbamol 500 mg tablet 500 mg PO Q6H PRN Back pain or 05/08/24 05/10/24 spasm #30 tabs Previous Rx's Medication Instructions Recorded methocarbamol 500 mg tablet 500 mg PO Q6H PRN Back pain or 05/08/24 spasm #30 tabs Allergies Allergy/AdvReac Type Severity Reaction Status Date / Time No Known Allergies Allergy Verified 05/10/24 13:35 General Stated Complaint: FlankPain ZIGGY: 3 Review of Systems Narrative: see HPI Exam Const General: cooperative, well developed and in distress (uncomfortable) Nutritional Appearance: average body habitus Resp Effort & Inspection: normal respiratory effort and able to speak in complete sentences Auscultation: clear to auscultation bilaterally Cardio Rate: regular rate Rhythm: regular rhythm GI Inspection: normal to inspection and abdominal wall ecchymosis (R flank) Palpation: soft, not rigid and nontender Auscultation: normal bowel sounds Rectal Exam - female: visual inspection normal, normal sphincter tone, No fecal impaction, No fissure and heme positive stool Neuro Cognition: normal cognition Speech: speech normal Gait: normal gait Motor: muscle tone normal throughout and strength 5/5 throughout Course Vital Signs Vital signs: Vital Signs Temperature 37.6 C 05/10/24 13:35 Pulse 96 H 05/10/24 13:35 Respiratory Rate 18 05/10/24 13:35 Blood Pressure 148/82 H 05/10/24 13:35 Pulse Oximetry 96 05/10/24 13:35 Temperature 37.6 C 05/10/24 13:35 Temperature Source Tympanic 05/10/24 13:35 Pulse 96 H 05/10/24 13:35 Respiratory Rate 18 05/10/24 13:35 Respiratory Effort Normal 05/10/24 13:38 Blood Pressure 148/82 H 05/10/24 13:35 Pulse Oximetry 96 05/10/24 13:35 Pain Level 7 05/10/24 14:08 Medical Decision Making Syeda is a 68-year-old female presents to the emergency department today for evaluation of worsening right flank pain that radiates to between her shoulder blades. She reports that pain started approximately 1 week ago, has been seen in the emergency department and had outpatient ultrasound performed, significant for gallstones. Pain has not moved since onset, she says it has been consistently in the same place since initial workup. This morning she has had worsening pain after eating breakfast, says it is a 9 out of 10 pain. She also had a bowel movement with diarrhea that was frankly bloody. Denies fever/chills, headache, dizziness, palpitations, chest pain, shortness of breath, nausea/vomiting, change in urine output, dysuria/hematuria, saddle anesthesia, weakness/numbness in extremities. She has had rectal bleeding in the past attributed to fissures, has a colonoscopy upcoming this fall. She does have a history of abdominal surgeries, hysterectomy and multiple C-sections. No known digestive disorders, bleeding disorders, recent trauma. Physical exam remarkable for tenderness palpation of right upper quadrant. Abdomen is soft, nondistended, normoactive bowel sounds. Faint ecchymosis noted to right flank. Rectal exam significant for occult blood, no elder blood, anal fissures, external hemorrhoids noted. Easy work of breathing, lung sounds clear bilaterally. Normal heart sounds. DDx includes but is not limited to: Cholecystitis, cholelithiasis, pancreatitis, biliary tract obstruction, diverticulitis, gastritis, peptic ulcer disease. I independently interpreted the following tests: CBC reassuring. Mild hypokalemia, potassium 3.2 noted on CMP. Lipase negative. While in the emergency department Syeda received 2 mg morphine for pain control. Handoff report given to stephen Gilmore AYLA. Quality:SDOH Health Related Social Needs: No Data to Display [facility] All Active Problems Gallstones (Acute) Right flank pain (Acute) Seborrheic keratoses (Acute) Tendonitis of left hip (Acute) Fall (Acute) Elevated BP without diagnosis of hypertension (Acute) Encounter for annual physical exam (Acute) Increased body mass index (BMI) (Acute) Painless rectal bleeding (Acute) Fatigue (Acute) Actinic keratoses (Acute) Family history of GI malignancy (Acute) colon ca-mother. Last colonoscopy was 08/26/17. She does not think she wants to repeat in the future. Family hx-breast malignancy (Acute) Sister at age 38. She continue with yearly mammograms. Medical History Thickening of wall of gallbladder Surgical History section 1980,1982 Abdominal hysterectomy (~02/2013) Colonoscopy - [facility] (08/26/17) Family History Mother , AGE 76 Diabetes Colorectal cancer Father , AGE 49 Heart disease Sister , AGE 38 Hyperlipidemia Breast cancer Sister , age 76 Diabetes Essential hypertension Parkinsons Anemia Sister Diabetes Maternal Grandfather Heart disease Paternal Grandfather , age 60 Heart disease Maternal Grandmother Diabetes Son No problems noted. Son No problems noted. Social History Smoking/Tobacco Use Status: Former Tobacco Use tobacco type: cigarettes Quit Date: 11/11/79 Second Hand Exposure: Yes Smoking risk assessment performed?: Yes Alcohol Intake: current Alcohol Intake frequency: a few times a month Alcohol type: wine Drug use: Never Substance use type: does not use Adopted: No Caregiver/Support person: No Foster care: No Household members: spouse Housing: house Number of Children: 2 number of grandchildren: 3 Communication Needs: None Education Level: college Do you need help understanding health information?: Rarely current occupation: Retired Pets and animals: Yes Pets and animals: dog(s) Sexually active: Yes Do you think of yourself as: straight/heterosexual Current gender identity: female What is your relationship status?: How often do you talk on the phone with friends or family?: twice per week How often do you get together with friends or relatives?: twice per week Do you belong to any clubs or organized social groups?: no Panel score (0-1 are the most socially isolated patients): 2 Agree to transfusion: Yes Seatbelt use: always 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
[2024-05-10 14:42] LABS: ALT 16 U/L (14-59); AST 11 U/L (15-37); Albumin 3.8 g/dL (3.4-5.0); Alkaline Phosphatase 103 U/L (46-116); Anion Gap 10.9 mmol/L (3-11); BUN 16 mg/dL (7-18); Bilirubin, Total 0.71 mg/dL (0.2-1.0); CO2 25.1 mmol/L (21.0-32.0); Calcium 8.9 mg/dL (8.5-10.1); Chloride 107 mmol/L (98-107); Estimated GFR 61.36 (mL/min/1.73m2); Glucose 121 mg/dL (74-106); Lipase 26 U/L (16-77); Potassium 3.2 mmol/L (3.5-5.1); Sodium 143 mmol/L (136-145)
[2024-05-10 15:17] VITALS: BP 152/63; PULSE 68; RESP 18; O2SAT 100
--- NOTE | 2024-05-10 17:00 | DI.RAD_ITS ---
Exam(s) XR CHEST 2V PA LATERAL EXAM: XR CHEST 2V PA LATERAL CLINICAL HISTORY: rug pain. TECHNIQUE: 2D digital imaging was performed. COMPARISON: CT CT ABDOMEN PELVIS W from 05/05/2024 FINDINGS: 2 views: Heart size is normal. The mediastinum is not widened. Lungs are clear. No infiltrates nor pleural effusions. High-grade T12 compression fracture again noted, as also evident on CT scan of 05/05/2024 IMPRESSION: No acute pulmonary findings. High-grade T12 compression fracture again noted. DATA REPOSITORY: RADIATION DOSE DELIVERED:
[2024-05-10] MEDS: ACETAMINOPHEN 1,000 MG/100 ML BTL 400 MG IVPB (17:45)
--- NOTE | 2024-05-10 18:45 | DI.VRAD_ITS ---
PROCEDURE INFORMATION: Exam: XR Chest Exam date and time: 05/10/2024 5:28 PM Age: 68 years old Clinical indication: Other: Rug pain TECHNIQUE: Imaging protocol: Radiologic exam of the chest. Views: 2 views. COMPARISON: CT ABDOMEN PELVIS W 05/05/2024 7:35 PM FINDINGS: Lungs: Clear lungs. No consolidation or edema. Pleural spaces: No pleural effusion. No pneumothorax. Heart/Mediastinum: Normal heart size. No mediastinal widening. Bones/joints: Degenerative thoracic spine. Anterior wedge compression fracture with chronic appearance in the region of L1. There is a kyphosis at this level. This is chronic in appearance. IMPRESSION: 1. No acute cardiopulmonary changes. 2. Appearance concerning for an old compression fracture of L1 with kyphosis. Dictated and Authenticated by: Guanako March MD. Ordering:YASH Mercedes MD
[2024-05-10 19:19] VITALS: BP 158/67; PULSE 92; RESP 14; O2SAT 98
--- NOTE | 2024-05-10 19:19 | W.SURGCON ---
Date of service: 05/10/24 Time of Service: 18:30 Assessment and Plan Assessment and plan (1) Gallstones: Status: Acute Assessment and plan: 68-year-old woman with 1 week of pain on her right side. Her pain is not abdominal subjectively where she locates it and it is not abdominal on examination. It is truly flank and back. She is hemodynamically stable. Her abdomen exam is actually completely benign. She is hemodynamically stable. There is no obvious explanation for her pain on the CT scan except for the T12 severe compression fracture. I wonder if this is the underlying culprit. She certainly has gallstones however these gallstones are calcified and extremely large. She has had these gallstones for decades under most likely circumstances. She is not having anything that sounds clinically like biliary colic. In other words, her gallstones are not symptomatic and she is NOT having gallbladder attacks. Constant abdominal pain, like she describes, would be cholecystitis and not symptomatic gallstones. Herein lies the problem: She is not having any ABDOMINAL pain. None of her pain subjectively is episodic or attacks but rather is constant. NONE of the imaging shows evidence of cholecystitis which would be the only explanation for constant abdominal pain. She has no leukocytosis. She has no elevated alk phos. She has no Torrez sign or even right upper quadrant pain. I am very suspicious, in her particular case, that this is NOT a gallbladder problem. I was very straightforward with the family, the patient and her , about my suspicions. I told them, with empathy and gentleness, that I think this is something else but we can consider the gallbladder and keep it in the background. It is my ethical obligation to not remove her gallbladder just because there are stones and because she is having pain, if I do not think her gallbladder is the problem. As mentioned above, I think her gallbladder has had stones for a long time and it would be hard to believe that these large stones are all of a sudden causing constant pain without radiographic evidence of cholecystitis. (And no laboratory evidence of it either) Overall plan: Because the patient has visited the ER 3 different times now and is having intractable pain, I will admit her for pain control and we will do a more thorough workup. We will get a HIDA scan tomorrow and see whether or not the gallbladder uptakes any radiotracer. If it does we will do CCK to see if there is an element of biliary dyskinesia (which I doubt). I will get a stat MRI of her thoracic spine to better understand the severe compression fracture which I think is probably the underlying culprit for her pain I will also repeat her ultrasound tomorrow since the last 1 did not seem to have good visualization of the wall. Overall plan: N.p.o. IV fluid Analgesia as needed DVT prophylaxis Imaging tomorrow More than 60 minutes was spent on this consultation, discussion and admission History of Present Illness Narrative: The patient is a 68-year-old woman who is quite tearful. She is visiting the emergency room for the third time in a week. She is having severe right sided flank and back pain. She cannot quite say exactly when it came on but was about a week ago. It has been constant ever since. It seems unrelated to eating. She had a CT scan which was mostly unrevealing, but that was 5 days ago. It showed calcified gallstones but it also showed a vertebral body fracture. At all of her ER visits, her white count has been normal, her alk phos has been normal and her bilirubin has been normal. She had an ultrasound done 2 days ago that showed the gallstones but no evidence of cholecystitis. She came back to the ER today because she has been having blood in her bowel movements. This is not a usual occurrence but she says it has happened to her in the past. She has a family history of breast cancer in a sister. Her mother had rectal cancer. There is also a history in the family of ulcerative colitis in her sister she thinks. She says she recently had a Cologuard test done. She says she has had a few colonoscopies but thinks the last one was more than 5 years ago. She thinks maybe 7. PFSH All Active Problems Gallstones (Acute) Right flank pain (Acute) Seborrheic keratoses (Acute) Tendonitis of left hip (Acute) Fall (Acute) Elevated BP without diagnosis of hypertension (Acute) Encounter for annual physical exam (Acute) Increased body mass index (BMI) (Acute) Painless rectal bleeding (Acute) Fatigue (Acute) Actinic keratoses (Acute) Family history of GI malignancy (Acute) colon ca-mother. Last colonoscopy was 08/26/17. She does not think she wants to repeat in the future. Family hx-breast malignancy (Acute) Sister at age 38. She continue with yearly mammograms. Medical History Thickening of wall of gallbladder Surgical History section 1980,1982 Abdominal hysterectomy (~02/2013) Colonoscopy - [facility] (08/26/17) Family History Mother , AGE 76 Diabetes Colorectal cancer Father , AGE 49 Heart disease Sister , AGE 38 Hyperlipidemia Breast cancer Sister , age 76 Diabetes Essential hypertension Parkinsons Anemia Sister Diabetes Maternal Grandfather Heart disease Paternal Grandfather , age 60 Heart disease Maternal Grandmother Diabetes Son No problems noted. Son No problems noted. Social History Smoking/Tobacco Use Status: Former Tobacco Use tobacco type: cigarettes Quit Date: 11/11/79 Second Hand Exposure: Yes Smoking risk assessment performed?: Yes Alcohol Intake: current Alcohol Intake frequency: a few times a month Alcohol type: wine Drug use: Never Substance use type: does not use Adopted: No Caregiver/Support person: No Foster care: No Household members: spouse Housing: house Number of Children: 2 number of grandchildren: 3 Communication Needs: None Education Level: college Do you need help understanding health information?: Rarely current occupation: Retired Pets and animals: Yes Pets and animals: dog(s) Sexually active: Yes Do you think of yourself as: straight/heterosexual Current gender identity: female What is your relationship status?: How often do you talk on the phone with friends or family?: twice per week How often do you get together with friends or relatives?: twice per week Do you belong to any clubs or organized social groups?: no Panel score (0-1 are the most socially isolated patients): 2 Agree to transfusion: Yes Seatbelt use: always Drive intox or ride w/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 She is very tearful. Neuro: Alert and oriented x 3 Psych: Somewhat tearful mood and affect, but otherwise good insight and understanding into her conditions Chest: Nonlabored breathing Heart: Regular Abdomen: Soft, nondistended and nontender. There is no Torrez sign. Flank: She has palpable flank pain on the right and it is point?tenderness along the right costal margin all the way into her back. Results Last Vital Signs Temp 99.6 F 05/10/24 13:35 Pulse 68 05/10/24 15:17 Resp 18 05/10/24 15:17 BP 152/63 H 05/10/24 15:17 Pulse Ox 100 05/10/24 15:17 Labs 05/10/24 13:52 05/10/24 13:52 Labs: Laboratory Results - last 24 hr 05/10/24 13:52 WBC 5.12 RBC 5.32 H Hgb 14.9 Hct 45.0 MCV 85 MCH 28.0 MCHC 33.1 RDW 12.9 Plt Count 213 MPV 9.6 Immature Gran % 0.2 Neutrophils % 67.7 Lymphocytes % 21.1 Monocytes % 8.4 Eosinophils % 1.8 Basophils % 0.8 Nucleated RBC % 0.0 Absolute Neutrophils 3.47 Absolute Lymphocytes 1.08 L Absolute Monocytes 0.43 Absolute Eosinophils 0.09 Absolute Basophils 0.04 VBG Lactate 1.4 Sodium 143 Potassium 3.2 L Chloride 107 Carbon Dioxide 25.1 Anion Gap 10.9 BUN 16 Creatinine 1.0 Est GFR (CKD-EPI 2020) 61.36 Glucose 121 H Calcium 8.9 Total Bilirubin 0.71 AST 11 L ALT 16 Alkaline Phosphatase 103 Total Protein 7.0 Albumin 3.8 Lipase 26
[2024-05-10 20:39] VITALS: BP 123/63; PULSE 78; RESP 16; O2SAT 97
[2024-05-10] MEDS: Heparin 5,000 UNITS/ML VIAL 5000 UNITS SC (21:00)
[2024-05-10] MEDS: Acetaminophen 500 MG TAB 1000 MG PO (21:00)
[2024-05-10 21:34] VITALS: BP 145/77; PULSE 75; RESP 16; TEMP 36.3; O2SAT 100
[2024-05-11] VITALS (15 sets, daily range): BP systolic 113–169; BP diastolic 58–72; PULSE 64–87; RESP 14–19; TEMP 36–37.1; O2SAT 95–99; BMI 29.2
--- NOTE | 2024-05-11 | DI.NM_ITS ---
Exam(s) NM HEPATOBILIARY SCAN GRP EXAM: NM HEPATOBILIARY SCAN GRP CLINICAL HISTORY: rule in/out biliary dyskinesia. TECHNIQUE: Injected dose: 5 mCi Tc-99 mebrofenin COMPARISON: Ultrasound examination of was reviewed. Also recent CT scan. There is normal uptake and excretion of radiopharmaceutical by the liver. Activity is rapidly excreted into the CBD and duodenal C-loop. For, there is nonvisualization of the gallbladder. Scan was extended for 2 hudson rs, still without radiopharmaceutical entering the gallbladder lumen. IMPRESSION: 1. Positive study. There is non visualization of the gallbladder at 2 hours, indicating obstruction of the cystic duct (acute cholecystitis).
--- NOTE | 2024-05-11 | DI.US_ITS ---
Exam(s) US ABDOMEN EXAM: US ABDOMEN CLINICAL HISTORY: assess wall thck or perichol fluid TECHNIQUE: Ultrasound of complete upper abdomen performed using standard protocol. COMPARISON: CT CT ABDOMEN PELVIS W from 05/05/2024 US US ABDOMEN from 05/08/2024 FINDINGS: There is no ascites evident. LIVER: There are no hepatic lesions evident nor obvious dilatation of intrahepatic ducts. GALLBLADDER/BILIARY: Gallbladder is filled with calculi and hyperdense bile. There is thickening of gallbladder wall noted. No pericholecystic fluid. The common hepatic duct isupper normal, measuring 5-6mm at the level of patrick hepatis. PANCREAS: There is no evidence of pancreatic mass nor dilatation of the pancreatic duct. SPLEEN: The spleen is not enlarged and there are no intrasplenic lesions evident. KIDNEYS:Kidneys exhibit normal size with no evidence of solid mass, calculus, nor hydronephrosis. No cortical cysts evident. ABDOMINAL AORTA: There is no evidence of abdominal aortic aneurysm. IVC: Normal diameter where visualized. IMPRESSION: 1. Gallbladder contains echogenic calculi and echogenic bile and the gallbladder wall appears thicke roc. Consistent with cholelithiasis and cholecystitis. 2. CBD diameter is upper normal, measuring 5-6 mm. 3. There is no ascites. DATA REPOSITORY:
--- NOTE | 2024-05-11 | DI.MRI_ITS ---
Exam(s) MR THORACIC SPINE WO EXAM: MR THORACIC SPINE WO CLINICAL HISTORY: Thoracic Vertebral body fracture TECHNIQUE: Multiplanar multisequence MRI of the thoracic spine was performed without intravenous con trast. COMPARISON: CT CT ABDOMEN PELVIS W from 05/05/2024 FINDINGS: OSSEOUS: There is an acute or subacute appearing compression fracture of T6 vertebral body. Approxim ately 20 percent height loss. Posteriorly at this level there is no significant posterior cortical r etropulsion and no canal compromise. Bone edema is seen both in the T6 vertebral body as well as wit hin the pedicles at this level. There is a nonacute appearing compression fracture of T12 vertebral body There is also a posterior cortex at this level bulges approximately 2-3 mm with mild compression of t he thecal sac but not the spinal cord at this level. Conus medullaris is at lower L1 level and appears unremarkable. THORACIC SPINAL CORD: There is no abnormal signal in the cervical spinal cord and no evidence of foca l cord atrophy nor focal cord swelling. There is no evidence of syringomyelia nor significant spinal cord dysraphism. There is no evidence of mass at the conus medullaris. The position of the conus me dullaris is at lower L1 level. SIGNIFICANT INDIVIDUAL DISC LEVEL FINDINGS: There are no significant disc herniations in the thoracic spinal column. No significant foraminal st enosis. PARASPINAL TISSUES: No significant masses nor fluid collections evident. IMPRESSION: 1. The main finding is an acute appearing 20 percent compression fracture of T6 vertebral body. Post erior cortex is not significantly retropulsed. There is no evidence of significant spinal canal sten osis at this level. 2. Chronic T12 compression fracture with posterior bulging of the posterior cortex at this level caus ing mild compression of the anterior thecal sac but not the spinal cord. 3. No significant disc herniations in the thoracic spinal column. No significant central canal steno sis nor significant foraminal stenosis on either side. DATA REPOSITORY:
[2024-05-11] MEDS: Lactated Ringers 1,000 ML 125 ML IV ×4 (01:07→23:40)
--- NOTE | 2024-05-11 03:38 | NUR.NOTE ---
Nursing Note: 0030 05/11/24 Patient complained of being unable to sleep. Doctor was informed of the patient request for something to assist with her anxiety and inability to sleep. This nurse was told not to contact the doctor for this. The doctor informed me that the patient would not be receiving anything to help with sleep.
[2024-05-11] MEDS: Heparin 5,000 UNITS/ML VIAL 5000 UNITS SC ×2 (03:45→18:08)
[2024-05-11] MEDS: Acetaminophen 500 MG TAB 1000 MG PO ×2 (03:46→14:12)
[2024-05-11 06:16] LABS: Abs Immature Grans 0.01 10^3/uL (0.0-0.06); Absolute Basophil Count 0.04 10^3/uL (0.0-0.2); Absolute Eosinophil Count 0.12 10^3/uL (0.0-0.7); Absolute Lymphocyte Count 1.27 10^3/uL (1.2-3.4); Absolute Monocyte Count 0.32 10^3/uL (0.1-0.8); Absolute Neutrophil Count 1.48 10^3/uL (1.2-6.7); Basophils % 1.2 %; Eosinophils % 3.7 %; HGB 12.9 g/dL (11.2-15.7); Immature Grans % 0.3 %; Lymphocytes % 39.2 %; MCHC 33.1 % (32.0-36.0); MCV 85 fL (80-95); MPV 9.6 fL (8.0-11.0); Monocytes % 9.9 %; Neutrophils % 45.7 %; Platelet Count 156 10^3/uL (130-400); RDW 13.1 % (11.7-14.6); RDW-SD 40.4 fL; WBC 3.24 10^3/uL (4.4-10.8)
--- NOTE | 2024-05-11 06:36 | PGE_ITS ---
Date of Service Date of service: 05/11/24 Time of Service: 07:38 Assessment and Plan Assessment and plan (1) Gallstones: Status: Acute Assessment and plan: 68-year-old woman with right?sided flank pain of unknown etiology or significance but considered to be possibly from her gallbladder because that was the only significant finding on imaging all done within the last week. We did a bunch more imaging today to decipher whether or not this is actually cholecystitis that is going on. Both the ultrasound today and the HIDA scan confirmed cholecystitis as the most likely ongoing diagnosis. I discussed the indications, the likely benefits as well as the possible risks of surgery with the patient. Specifically I discussed with her the possibility of persistent and ongoing symptoms because her pain is show atypical, especially the location. Nonetheless, I do recommend that we proceed with surgery and she is in agreement and wants to proceed. Overall plan: Laparoscopic cholecystectomy She can follow-up outpatient with her PCP and retail loss prevention specialist in regards to the spine fractures found on MRI Subjective Subjective Interval history since last seen: No changes in her symptoms. She actually thinks she feels a little bit better today. But still having some discomfort. She has not eaten anything today. She had an MRI which showed multiple spine fractures. None of them compressing nerves however. Ultrasound this time around shows gallbladder wall thickening and the HIDA scan correlated as well with no uptake consistent with cholecystitis. I discussed the nature of the findings of the testing with her and recommend proceeding with cholecystectomy. Exam Narrative Exam Narrative: General: Nontoxic, appears comfortable and interactive. She is actually sleeping when I went to see her and had to wake her up. Neuro: Alert and oriented x 3 Psych: Good mood and affect, good insight and understanding into her condition. Chest: Nonlabored breathing Heart: Regular Abdomen: Soft, remains grossly nontender to examination with no right upper quadrant pain on palpation and no Torrez sign. Objective Last Vital Signs Temp 97.3 F L 05/10/24 21:34 Pulse 75 05/10/24 21:34 Resp 16 05/10/24 21:34 BP 145/77 H 05/10/24 21:34 Pulse Ox 100 05/10/24 21:34 Laboratory Results - last 24 hr 05/10/24 05/11/24 13:52 05:51 WBC 5.12 3.24 L RBC 5.32 H 4.60 Hgb 14.9 12.9 D Hct 45.0 39.0 MCV 85 85 MCH 28.0 28.0 MCHC 33.1 33.1 RDW 12.9 13.1 Plt Count 213 156 MPV 9.6 9.6 Immature Gran % 0.2 0.3 Neutrophils % 67.7 45.7 Lymphocytes % 21.1 39.2 Monocytes % 8.4 9.9 Eosinophils % 1.8 3.7 Basophils % 0.8 1.2 Nucleated RBC % 0.0 0.0 Absolute Neutrophils 3.47 1.48 Absolute Lymphocytes 1.08 L 1.27 Absolute Monocytes 0.43 0.32 Absolute Eosinophils 0.09 0.12 Absolute Basophils 0.04 0.04 VBG Lactate 1.4 Sodium 143 Potassium 3.2 L Chloride 107 Carbon Dioxide 25.1 Anion Gap 10.9 BUN 16 Creatinine 1.0 Est GFR (CKD-EPI 2020) 61.36 Glucose 121 H Calcium 8.9 Total Bilirubin 0.71 AST 11 L ALT 16 Alkaline Phosphatase 103 Total Protein 7.0 Albumin 3.8 Lipase 26 Time Spent with Patient Time Spent with Patient: 25-34 minutes Time was spent: preparing to see the patient(eg.review tests), obtaining and/or reviewing separately otained hiistory, ordering medications,tests, procedures, referring, communicating with other health child care center assistant director, indepentently interpreting results, counseling the patient and care coordination
[2024-05-11 06:41] LABS: ALT 11 U/L (14-59); AST 13 U/L (15-37); Alkaline Phosphatase 79 U/L (46-116); Anion Gap 10.1 mmol/L (3-11); BUN 12 mg/dL (7-18); Bilirubin, Total 0.74 mg/dL (0.2-1.0); CO2 23.9 mmol/L (21.0-32.0); CREATININE 0.8 mg/dL (0.55-1.02); Calcium 8.1 mg/dL (8.5-10.1); Chloride 107 mmol/L (98-107); Estimated GFR 80.21 (mL/min/1.73m2); Glucose 81 mg/dL (74-106); Potassium 3.4 mmol/L (3.5-5.1); Sodium 141 mmol/L (136-145); Total Protein 5.4 g/dL (6.4-8.2)
[2024-05-11] MEDS: LORazepam 0.5 MG TAB PO (12:36)
--- NOTE | 2024-05-11 13:15 | INITIAL_ITS ---
Date of service: 05/11/24 Time of Service: 13:15 Care Management Initial Assmt Initial Assessment Reason for Hospitalization: flank pain Functional Status/Living Situation Patient Presentation: Syeda was sitting up in bed visiting with her and her sister when CM met with her.. She was agreeable to conversation and engaged well with CM. Syeda shared that she has been having chronic back pain for the last couple of years but that this new pain is different. She has recently been diagnosed with cholecystitis and it was thought that these symptoms may be related to that. She admitted to being a little anxious and was hoping for another visit from the surgeon to let her know what the test results showed. 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) Instrumental Activities of Daily Living (ADLs): Independent Activities/Hobbies/SocialSupport: enjoys going to [employer] and yard sales, collects [employer] memorabilia Medications Medication Management: No Issues/Barriers identified Advance Directives Advance Directives: Do you have an Advance Directive: Y 05/05/24 16:30 AD On File at [facility]: Y 05/05/24 16:30 Date Asked 07/21/18 05/08/24 09:44 AD Date Reviewed 05/10/24 05/11/24 10:34 COLST On File at [facility] COLST Date Scanned Code Status Resuscitation Status Full Code Insurance Coverage/Financial Issues Insurance: MVP medicare replacement ACO Member: No Care Team Visit Care Team Role Provider Type Johan Harrington NP Primary Care Provider NURSE PRACTITIONER SALINA [facility] Emergency Provider PHYSICIANS ASSISTANT FACILITY MANAGER Brian Franklin MD Admit Provider [facility] STAFF PHYSICIAN Attending Provider Discharge Potential Discharge Needs: PCP F/U Appt Anticipated Barriers to Discharge: None Identified Patient/Family Education Needs: Review discharge instructions, discuss Ask Me Three Transportation: Private vehicle Plan: Anticipate Syeda will be discharged home with no new services. She will follow up with her community providers and plan of care and transport with family. CM will follow and support discharge needs. PFSH All Active Problems Gallstones (Acute) Right flank pain (Acute) Seborrheic keratoses (Acute) Tendonitis of left hip (Acute) Fall (Acute) Elevated BP without diagnosis of hypertension (Acute) Encounter for annual physical exam (Acute) Increased body mass index (BMI) (Acute) Painless rectal bleeding (Acute) Fatigue (Acute) Actinic keratoses (Acute) Family history of GI malignancy (Acute) colon ca-mother. Last colonoscopy was 08/26/17. She does not think she wants to repeat in the future. Family hx-breast malignancy (Acute) Sister at age 38. She continue with yearly mammograms. Medical History Thickening of wall of gallbladder Surgical History section 1980,1982 Abdominal hysterectomy (~02/2013) Colonoscopy - MAC (08/26/17) Family History Mother , AGE 76 Diabetes Colorectal cancer Father , AGE 49 Heart disease Sister , AGE 38 Hyperlipidemia Breast cancer Sister , age 76 Diabetes Essential hypertension Parkinsons Anemia Sister Diabetes Maternal Grandfather Heart disease Paternal Grandfather , age 60 Heart disease Maternal Grandmother Diabetes Son No problems noted. Son No problems noted. Social History Smoking/Tobacco Use Status: Former Tobacco Use tobacco type: cigarettes Quit Date: 11/11/79 Second Hand Exposure: Yes Smoking risk assessment performed?: Yes Alcohol Intake: current Alcohol Intake frequency: a few times a month Alcohol type: wine Drug use: Never Substance use type: does not use Adopted: No Caregiver/Support person: No Foster care: No Household members: spouse Housing: house Number of Children: 2 number of grandchildren: 3 Communication Needs: None Education Level: college Do you need help understanding health information?: Rarely current occupation: Retired Pets and animals: Yes Pets and animals: dog(s) Sexually active: Yes Do you think of yourself as: straight/heterosexual Current gender identity: female What is your relationship status?: How often do you talk on the phone with friends or family?: twice per week How often do you get together with friends or relatives?: twice per week Do you belong to any clubs or organized social groups?: no Panel score (0-1 are the most socially isolated patients): 2 Agree to transfusion: Yes Seatbelt use: always Drive intox or ride w/intox cdl dedicated truck driver: No Working smoke detector in home: Yes Firearms in home: Yes Firearms unloaded and locked: Yes Do you feel safe at home: Yes Do you feel safe in your relationship?: Yes Victim of physical abuse: No Victim of emotional abuse: No Victim of sexual abuse: No SDOH(Care Management) Screening Will the Patient Participate in the Screening?: Yes Do you worry about having a steady place to live?: no In the past 12 months, have you had to go without electric, gas, oil or water in your home?: no Have you or anyone in your house had to go without enough food to eat?: no Has lack of transportation kept you from medical appointments or from doing things needed for daily living?: no Has anyone in your support network made you feel unsafe for any reason?: no
[2024-05-11] MEDS: Cyclobenzaprine 10 MG TAB PO (14:12)
[2024-05-11] MEDS: Normal Saline Flush 10 ML SYR IVP ×2 (14:12→23:21)
--- NOTE | 2024-05-11 16:24 | ANES.PREOP_ITS ---
General Info Date of Service Date Performed: 05/11/24 Height: 4 ft 11 in Weight: 65.771 kg Body Mass Index (BMI): 29.2 Meds Allergies and Home Medications Allergies Allergy/AdvReac Type Severity Reaction Status Date / Time No Known Allergies Allergy Verified 05/10/24 13:35 Home Medication Medication Instructions Recorded calcium carb,cit ER 600 mg-vit D3 1 ea PO DAILY 08/19/17 12.5 mcg (500 unit) tablet,ext.rel multivitamin,[id number]-[id number] 1 tab PO DAILY 07/15/18 (Complete Multivitamin tablet) ibuprofen 200 mg capsule 200 mg PO Q6H PRN 08/28/21 methocarbamol 500 mg tablet 500 mg PO Q6H PRN Back pain or 05/08/24 spasm #30 tabs Current Visit Medications: Current Medications Generic Name Dose Route Start Last Admin Trade Name Freq PRN Reason Stop Dose Admin Acetaminophen 1,000 mg 05/10/24 21:00 05/11/24 14:12 Acetaminophen 500 Mg Tab PO 1,000 mg Q6H [facility] Administration Cyclobenzaprine HCl 10 mg 05/11/24 08:30 05/11/24 14:12 Cyclobenzaprine 10 Mg Tab PO 10 mg TID [facility] Administration Heparin Sodium (Porcine) 5,000 units 05/10/24 20:30 05/11/24 13:21 Heparin 5,000 Units/Ml Vial SC Not Given Q8H [facility] Ringer's Solution 1,000 mls @ 125 mls/hr 05/10/24 20:30 05/11/24 14:15 IV 125 mls/hr INFUSION [facility] Infusion Piperacillin Sod/Tazobactam 50 mls @ 100 mls/hr 05/11/24 18:00 Sod 3.375 gm/ Sodium Chloride IVPB Q6H [facility] IV Miscellaneous Supplies 1 each 05/10/24 20:30 Iv Access IV DIRECTED [facility] Ketorolac Tromethamine 30 mg 05/10/24 20:20 Ketorolac 30 Mg/Ml Vial IVP 05/15/24 20:19 Q8H PRN PRN Lidocaine 1 patch 05/11/24 08:00 05/11/24 10:42 Lidocaine 5% Patch TP Not Given Q24H [facility] Miscellaneous 1 each 05/11/24 20:00 Patch Removal Lidocaine TP DAILY@1999 [facility] Ondansetron HCl 4 mg 05/10/24 20:16 Ondansetron 4 Mg/2 Ml Vial IVP Q4H PRN PRN Sodium Chloride 0 ml 05/10/24 20:16 05/11/24 14:12 Normal Saline Flush 10 Ml Syr IVP 10 ml PRN PRN Administration PFSH Active Problems Active Problems: Problem Status Onset Code Gallstones K80.20 Right flank pain R10.9 Seborrheic keratoses L82.1 Tendonitis of left hip M76.892 Fall W19.XXXA Elevated BP without diagnosis of hypertension R03.0 Encounter for annual physical exam Z00.00 Increased body mass index (BMI) R63.8 Painless rectal bleeding K62.5 Fatigue R53.83 Actinic keratoses L57.0 Family history of GI malignancy Z80.0 Family hx-breast malignancy Z80.3 Medical History Medical History Thickening of wall of gallbladder Surgical History Surgical History section 1980,1982 Abdominal hysterectomy (~02/2013) Colonoscopy - MAC (08/26/17) Tobacco Smoking/Tobacco Use Status: Former Tobacco Use Passive smoking exposure: Yes Second hand exposure: Yes Alcohol Alcohol Intake: current Alcohol intake frequency: a few times a month Alcohol type: wine Substance Use Substance use: Never Substance use type: does not use Vital Signs and Lab Results Vital Signs Most Recent Vital Signs in EMR: Most Recent Vital Signs Temp Pulse Resp BP Pulse Ox 37.1 C 68 19 125/63 99 05/11/24 15:36 05/11/24 15:36 05/11/24 15:36 05/11/24 15:36 05/11/24 15:36 Lab Results 05/11/24 05:51 05/11/24 05:51 Blood Type / Crossmatch: 2 No Data to Display Complete Blood Count: 2 White Blood Count 3.24 10^3/uL (4.4-10.8) L 05/11/24 05:51 Red Blood Count 4.60 10^6/uL (3.93-5.22) 05/11/24 05:51 Hemoglobin 12.9 g/dL (11.2-15.7) 05/11/24 05:51 Hematocrit 39.0 % (36.0-46.0) 05/11/24 05:51 Platelet Count 156 10^3/uL (130-400) 05/11/24 05:51 Venous Blood Lactate 1.4 mmol/L (0.6-1.4) 05/10/24 13:52 Complete Metabolic Panel: 2 Sodium 141 mmol/L (136-145) 05/11/24 05:51 Potassium 3.4 mmol/L (3.5-5.1) L 05/11/24 05:51 Chloride 107 mmol/L (98-107) 05/11/24 05:51 Carbon Dioxide 23.9 mmol/L (21.0-32.0) 05/11/24 05:51 BUN 12 mg/dL (7-18) 05/11/24 05:51 Creatinine 0.8 mg/dL (0.55-1.02) 05/11/24 05:51 Est GFR (CKD-EPI 2020) 80.21 (mL/min/1.73m2) 05/11/24 05:51 Calcium 8.1 mg/dL (8.5-10.1) L 05/11/24 05:51 Albumin 3.0 g/dL (3.4-5.0) L 05/11/24 05:51 Glucose 81 mg/dL (74-106) 05/11/24 05:51 Liver Function Panel: 2 Alanine Aminotransferase (ALT/SGPT) 11 U/L (14-59) L 05/11/24 0 5:51 Aspartate Amino Transf (AST/SGOT) 13 U/L (15-37) L 05/11/24 05: 51 Coagulation Panel: 2 No Data to Display Cardiac Panel: 2 No Data to Display Arterial Blood Gas: 2 No Data to Display Venous Blood Gas: 2 No Data to Display Pancreas Panel: 2 Lipase 26 U/L (16-77) 05/10/24 13:52 Thyroid Panel: 2 No Data to Display Infectious Disease: 2 No Data to Display Blood Cultures: 2 No Data to Display Toxicology Panel: 2 No Data to Display Anesthesia Assessment and Plan Anesthesia History Personal History: No History of Anesthesia Complications Family History: No Family History of Anesthesia Complications Exercise Tolerance Exercise Tolerance: Metabolic Equivalents>4 Pertinent Negatives Pertinent Negatives: No Symptoms of GERD, No Major Cardiovascular Symptoms or Complaints, No Major Pulmonary Symptoms or Complaints and No History of CVA/TIA Cardiac & Pulmonary Exam Cardiac Exam: Normal S1/S2 Heart Sounds Pulmonary Exam: Clear Bilateral Breath Sounds Implantable Cardiac Device Does patient have a Pacemaker or an ICD?: No Airway Exam Known Difficult Airway: No Mallampati Class: 3 Mouth Opening: Normal (> 3cm) Thyromental Distance: Greater than 3 cm Neck Range of Motion: Full ROM Neck Circumference: Normal Teeth Condition: Normal Dentition ASA Classification ASA Score: ASA 2 Emergency Case?: Yes NPO Status NPO Status: NPO Clears >2 hours, Solids >8 hours Anesthesia Plan Resuscitation Status: Full Code Anesthesia Technique: General Anesthesia Airway Planned: Endotracheal Tube Monitors Used: Standard Monitors
--- NOTE | 2024-05-11 17:07 | PHA.REVIEW2 ---
Pharmacy Admission Review Admission Clinical Review Admission Pharmacy Review: Gallstones (Acute) No Known Allergies Allergy (Verified 05/10/24 13:35) Resuscitation Status Full Code Height 4 ft 11 in Weight 65.771 kg Pharmacy Admission Review Renal Dosing Renal Dosing: BUN 12 mg/dL (7-18) 05/11/24 05:51 Creatinine 0.8 mg/dL (0.55-1.02) 05/11/24 05:51 Medications needing adjustments: Reviewed (CrCl 55.91 mL/min) List of meds needing interventions: Current medications are okay Anticoagulation Anticoagulation: Hgb 12.9 g/dL (11.2-15.7) D 05/11/24 05:51 Hct 39.0 % (36.0-46.0) 05/11/24 05:51 Plt Count 156 10^3/uL (130-400) 05/11/24 05:51 Creatinine 0.8 mg/dL (0.55-1.02) 05/11/24 05:51 DVT Prophylaxis: Reviewed Medications: Heparin (q8h) Relevant Labs Relevant Labs: Sodium 141 mmol/L (136-145) 05/11/24 05:51 Potassium 3.4 mmol/L (3.5-5.1) L 05/11/24 05:51 Chloride 107 mmol/L (98-107) 05/11/24 05:51 Electrolytes, C-Reactive P, ESR: Reviewed (K 3.4, Hgb decreased from 14.9 to 12.9) Cardiac Review BP, HR, EF%: Reviewed (BP and HR WNL) QTc Review QTc: Reviewed (No EKG on file) IV to PO Switch IV Medications: Reviewed (Zosyn, ondansetron and ketorolac) Home Meds Home Med List reviewed: Reviewed Relevent Home Meds Not ordered & why?: Calcium carbonate, ibuprofen (PRN), methocarbamol (PRN), multivitamin Current Meds Current Medication Order Review: Intervened Comments: Added patch removal order for lidocaine patch Pharmacy Antibiotic Review Relevant Labs: WBC 3.24 10^3/uL (4.4-10.8) L 05/11/24 05:51 Temperature 37.1 C Temperature 37.0 C Pharmacy Antibiotic Activity: Reviewed, no change Comments: Patient started on Zosyn 3.375g q6h for suspected UTI. No cultures pending.
[2024-05-11] MEDS: PIPERACILLIN/TAZO 3.375 GM in Normal Saline 50 ML IVPB (18:05)
[2024-05-11] MEDS: Bupivacaine 0.25% Pres-Free 30 ML VIAL (18:14)
--- NOTE | 2024-05-11 18:30 | GB_PTH ---
PATIENT: Syeda Rey LOC: [id number]#:[id number] AGE/SX: 68/F ROOM: [id number] RE05/10/[address]: Brian Franklin : 1955 BED: A DIS: 05/12/2024 SPEC #: [id number] RECD: 05/12/24 12:48 STATUS: ARTHUR REQ #: [id number] JOSI: 05/11/24 18:[address]: Brian Franklin DEPT: Surgical Specimen RECD BY: Mago Franz ENTERED: 05/12/24 12:48 SP TYPE: GB OTHR DR: Johan Naylor DNP Tissues: 1 - GALLBLADDER Procedures: GROSS AND MICRO LEVEL 3 Comments: [id number]
--- NOTE | 2024-05-11 19:54 | ROE_ITS ---
Date of service: 05/11/24 Time of Service: 19:30 Operative Note Operative Note Refer to Anesthesia Record Procedure Description: Procedure: Laparoscopic cholecystectomy Surgeon: Jerome Franklin PreOperative Diagnosis: Acute cholecystitis PostOperative Diagnosis: Acute cholecystitis Assist: SALINA Garcia Anesthesia: General Anesthesiologist: Vicente Indication: Right upper quadrant pain in setting of known gallstones. Wall thi ckening on ultrasound and HIDA scan showing no uptake. Findings: Moderately distended gallbladder with significant inflammation but without pericholecystic fluid. Severely distorted biliary anatomy with a bifurcated common hepatic duct adhered against infundibulum. After exposure, an extremely short (1-2 mm) cystic duct was encountered. Only 2 clips could be facilitated on it. Drain left in place in case clips fail. Complications: None Estimated Blood Loss: Minimal Specimens removed: Gallbladder Grafts or implants: No Drains: 15 [place]ish ADALID drain left in the gallbladder fossa Procedure in detail: Written consent was obtained from the patient who was in agreement the risks, the benefits and indications for the procedure. The patient was taken to the operating suite and laid supine on the operating table with arms outstretched. General anesthesia was administered which was tolerated very well. Next we prepped and draped the abdomen in sterile fashion. A timeout was performed and we verified antibiotic administration as well as DVT prophylaxis. When we were all in agreement we began the procedure. Local anesthetic was injected. Just above the bellybutton a small stab incision was made and a 5 mm Optiview trocar was used to enter into the abdomen under direct visualization. Four-quadrant diagnostic laparoscopy was performed and was grossly within normal limits(some expected intra-abdominal adhesions to her midline incision). The liver was inspected and did not appear cirrhotic. I did not see any free fluid anywhere. 2 more trochars were placed just below the costal margin on the left side under visualization. A 12 mm epigastric port was placed under direct visualization. The gallbladder was noted to be distended and inflamed. When I grasped it at the fundus it was noted to be quite thickened and difficult to grasp. I was finally able to get a grasper locked onto it and retracted it towards the left shoulder. This nicely exposed the base of the gallbladder and its relevant anatomy. A combination of blunt and electrocautery dissection was performed to incise the peritoneum and expose the cystic plate. I was quite concerned by the size of what seemed like an obvious cystic duct as well as its proximity to the duodenum. I had suspicion this may be the common bile duct and I proceeded with caution. I converted to a top?down approach and opened up the cystic plate against the liver bed. I then dissected backwards along the infundibulum and using the infundibulum as a border/guide and it became readily obvious that the common hepatic duct was being tented up and adherent against the infundibulum. Gentle and cautious blunt dissection with a [place] was used to develop this plane. I did not use electrocautery in this plane. I was finally able to create a space between the infundibulum and the common hepatic duct. I was able to clear off the entire infundibulum border and cystic plate such that only 2 structures going into the gallbladder. 1 was obviously a cystic artery. The other was the only entry point from the common duct into the gallbladder and it appeared to be about a 2?millimeter (in length) cystic duct. This was my critical view and again, I only had maybe 5 or 6 mm in between the common hepatic duct and the infundibulum after all of this exposure. I clipped the cystic artery. I then carefully dissected up onto the infundibulum and I was able to leave only 2 clips on the cystic duct itself. I then divided the gallbladder infundibulum off of the cystic duct leaving the [address] After this step, the case became straightforward. The gallbladder was then removed off the gallbladder fossa with electrocautery. Hemostasis was excellent and there was no bile leaking from the gallbladder fossa. The gallbladder was placed in an Endo Catch bag and removed from the abdomen. We rechecked for hemostasis and it remained excellent. Again, I was able to easily visualize the common duct with my tiny cystic duct holding the clips. I was afraid that these may fall off and show I left a 15 [place]bourgish ADALID drain draped underneath the liver margin. The 12 mm epigastric port site was closed with 0 Vicryl using a Jose Babar. All trochars were removed under visualization and the pneumoperitoneum was evacuated. I closed the skin with running Monocryl and placed Dermabond over top of the wounds. The sponge, instrument and sharps count was correct x3 at the end of the procedure. The patient tolerated the procedure well and was taken to the PACU in hemodynamically stable condition.
[2024-05-11] MEDS: Ketorolac 30 MG/ML VIAL IVP (20:17)
[2024-05-11] MEDS: ACETAMINOPHEN 1,000 MG/100 ML BTL 400 MG IVPB (20:18)
--- NOTE | 2024-05-11 20:29 | W.ANESPOSTOP ---
Postoperative Evaluation Date, Time and Location Date Performed: 05/11/24 Time Performed: 20:29 Patient Location: PACU Vital Signs Most Recent Imported Vital Signs: Most Recent Vital Signs Temp Pulse Resp BP Pulse Ox 36.5 C 75 18 169/67 H 98 05/11/24 19:56 05/11/24 19:56 05/11/24 19:56 05/11/24 19:56 05/11/24 19:56 Pain Score Most Recent Pain Score: Most Recent Pain Score Pain Level 8 05/11/24 19:56 Assessment Mental Status: Awake (Alert & Oriented to Patient Baseline) Airway and Respiratory Function: Patent airway with normal (patient baseline) respiratory exam Cardiovascular Function: Hemodynamically Stable Hydration Status: Adequately Hydrated Nausea & Vomiting: No Nausea or Vomiting Pain: Pain is Moderate or Severe Postoperative Pain Management: Pain being addressed with medication and Ongoing pain, patient will be managed as an inpatient Peripheral Nerve Block: Patient did not receive a nerve block
[2024-05-11] MEDS: HYDROmorphone 2 MG/ML SYR 0.5 MG IVP (23:21)
[2024-05-12] MEDS: PIPERACILLIN/TAZO 3.375 GM in Normal Saline 50 ML IVPB ×3 (00:12→11:50)
[2024-05-12] MEDS: ACETAMINOPHEN 1,000 MG/100 ML BTL 400 MG IVPB ×2 (01:17→08:39)
[2024-05-12 01:21] VITALS: BP 126/62; PULSE 81; RESP 15; TEMP 36.7; O2SAT 96
[2024-05-12] MEDS: Ketorolac 30 MG/ML VIAL IVP ×2 (03:37→11:25)
[2024-05-12] MEDS: Heparin 5,000 UNITS/ML VIAL 5000 UNITS SC (06:33)
[2024-05-12 08:08] VITALS: BP 119/58; PULSE 76; RESP 20; TEMP 37; O2SAT 96
[2024-05-12] MEDS: Lidocaine 5% Patch 1 PATCH TP (08:39)
[2024-05-12] MEDS: Normal Saline Flush 10 ML SYR IVP (08:40)
--- NOTE | 2024-05-12 10:38 | PDOC.CMPRO ---
Date of service: 05/12/24 Time of Service: 10:39 Care Management Progress Note Discharge Potential Discharge Needs: Surgical F/U Appt Anticipated Barriers to Discharge: Medical Status Patient/Family Education Needs: Review discharge instructions, discuss Ask Me Three Transportation: Private vehicle Plan: Anticipate Syeda will be discharged home with no new services. She will follow up with her community providers and plan of care and transport with family. CM will follow and support discharge needs. SDOH(Care Management) Screening Will the Patient Participate in the Screening?: Yes Do you worry about having a steady place to live?: no In the past 12 months, have you had to go without electric, gas, oil or water in your home?: no Have you or anyone in your house had to go without enough food to eat?: no Has lack of transportation kept you from medical appointments or from doing things needed for daily living?: no Has anyone in your support network made you feel unsafe for any reason?: no
--- NOTE | 2024-05-12 13:03 | W.PM.DS.N ---
Date of service: 05/12/24 Time of Service: 13:03 DS: Diagnosis Discharge Diagnosis (1) Gallstones: Status: Acute Asessment and Plan: 68-year-old woman postop day 1 from laparoscopic cholecystectomy. Stable and ready for discharge home. She has a drain in place preemptively because of a tenuous/short cystic duct that is high?risk for clips falling off. Discharge Plan Disposition Patient Disposition: Home Condition: Improving Discharge Details Reason For Visit: Flank pain Admit Date/Time: 05/10/24 20:16 Admit Provider: Brian Franklin Attending Provider: Brian Franklin Primary Care Provider: Johan Zamarripa Hospital Course Hospital Course: 68-year-old woman who was admitted to the hospital with right-sided flank pain. It was atypical for gallbladder pain and she had no evidence of cholecystitis at the time of admission. Because she had had 3 ER visits, she was admitted for pain control and further workup. A HIDA scan the next day showed concern for cholecystitis. An MRI showed spine fractures in her thoracic spine but without evidence of nerve impingement. She was recommended to undergo laparoscopic cholecystectomy which was performed without incidence. During her laparoscopic cholecystectomy, an extremely short cystic duct was encountered and only 2 clips were able to be placed on it with essentially no margin of tissue above the second clip. Due to this high?risk for clips falling off -and subsequently developing a bile leak, a drain was left in place. It will get removed in the office on postop day 4. She will follow-up with her PCP in regards to her spine fractures. Home Meds and New Rx's Prescriptions: No Action Complete Multivitamin tablet 1 tab PO DAILY ibuprofen 200 mg capsule 200 mg PO Q6H PRN methocarbamol 500 mg tablet 500 mg PO Q6H PRN (Reason: Back pain or spasm) Qty: 30 0RF calcium carb and citrate-vitD3 1 EACH tablet extended release 1 ea PO DAILY Discharge Instructions Additional Instructions: Incisions: Keep clean and dry but they do not need to be covered. It is okay to shower but no tub bathing for 1 week. You can peel the glue off in 1 week. Any Band-Aids or dressings can be removed in 2 days. Drain: Emptied the drain once in the morning and once in the evening. You do not need to record how much comes out of it. You need to follow-up in the surgery office on Saturday to have the drain removed. Activity: As tolerated. There are no restrictions. Diet: Regular diet as tolerated Medications: Resume all of your usual/regular home medications Follow-up: Follow-up in the surgery office in 2 to 3 weeks. Call your PCP and follow-up with them in regards to your spine fractures and next best steps. Pain control: Take Tylenol, 1000 mg, every 6 hours on a schedule for the next 3 days. You can use ibuprofen in addition to Tylenol. Ice and heat can be used as necessary. Overall: Symptoms should not be worsening. If you have any difficulty breathing or you have return of symptoms of brought you to the hospital or your pain is otherwise worsening each day and you should call the doctor's office or come into the hospital to be checked out. Activity:: Activity as Tolerated Activity:: Activity as Tolerated Equipment/Supplies:: No Equipment Needed Diet:: As Tolerated DS: Summary Time Spent with Patient providing and/or coordinating discharge services: Less than 30 minutes Status at Discharge Functional status at discharge: independent ambulation Overall status at discharge: patient is progressing back to baseline Mental Status: mental status grossly normal Speech and Movement: speech and movement normal Mood: congruent mood Affect: normal affect Quality:SDOH Health Related Social Needs: No Data to Display Exam Narrative Exam Narrative: General: Nontoxic, comfortable and interactive. Still having some discomfort and pain but the right?sided pain is gone. Neuro: Alert and oriented x 3 Psych: Good mood and affect, good insight and understanding into her condition Chest: Nonlabored breathing Heart: Regular Abdomen: Soft, nondistended, appropriate/expected tenderness around incision sites only. The dressings are stained but otherwise dry and intact. The ADALID drain has 10 cc of serosanguineous fluid. No bile. Psych Mental Status: mental status grossly normal Speech and Movement: speech and movement normal Mood: congruent mood Affect: normal affect DS: Data Vitals/I&O Vitals and I&O: Vital Signs Temperature 98.6 F 05/12/24 08:08 Temperature Source Tympanic 05/12/24 08:08 Pulse 76 05/12/24 08:08 Pulse Rhythm Regular 05/12/24 08:49 Respiratory Rate 20 05/12/24 08:08 Respiratory Effort Normal, Non-Labored 05/12/24 08:49 Respiratory Depth Normal 05/12/24 08:49 Respiratory Pattern Normal 05/12/24 08:49 Blood Pressure 119/58 L 05/12/24 08:08 Blood Pressure Mean 92 05/10/24 15:17 Blood Pressure Position Supine 05/10/24 15:17 Pulse Oximetry 96 05/12/24 08:08 Respiratory End-tidal CO2 30 05/11/24 20:40 Oxygen Delivery Method Room Air 05/12/24 08:08 Oxygen Flow Rate 0 05/12/24 08:08 Pain Level 6 05/12/24 08:08 Intake & Output 05/11/24 05/12/24 05/12/24 23:59 11:59 23:59 Intake Total 1947.917 / 3150.000 1310.0 / 1310.0 Output Total 720 / 750 765 / 765 Balance 1227.917 / 2400.000 545.0 / 545.0 Weight 145 lb Intake: IV 1947.917 / 3150.000 1310.0 / 1310.0 Oral 0 / 0 Output: Drainage 70 / 70 65 / 65 Left Anterior Medial Abdomen 70 / 70 65 / 65 Urine 650 / 680 700 / 700 Emesis 0 / 0 Other: Urine Color Yellow Yellow Urine Appearance Clear Clear Urine Odor None Normal Emesis Description None Voiding Methods Bedpan Toilet PFSH All Active Problems (Updated 05/12/24 @ 08:40 by Johan Harrington NP) Rhomboid muscle pain (Acute) Gallstones (Acute) Right flank pain (Acute) Seborrheic keratoses (Acute) Tendonitis of left hip (Acute) Fall (Acute) Elevated BP without diagnosis of hypertension (Acute) Encounter for annual physical exam (Acute) Increased body mass index (BMI) (Acute) Painless rectal bleeding (Acute) Fatigue (Acute) Actinic keratoses (Acute) Family history of GI malignancy (Acute) colon ca-mother. Last colonoscopy was 08/26/17. She does not think she wants to repeat in the future. Family hx-breast malignancy (Acute) Sister at age 38. She continue with yearly mammograms. Medical History Thickening of wall of gallbladder Surgical History section 1980,1982 Abdominal hysterectomy (~02/2013) Colonoscopy - MAC (08/26/17) Family History Mother , AGE 76 Diabetes Colorectal cancer Father , AGE 49 Heart disease Sister , AGE 38 Hyperlipidemia Breast cancer Sister , age 76 Diabetes Essential hypertension Parkinsons Anemia Sister Diabetes Maternal Grandfather Heart disease Paternal Grandfather , age 60 Heart disease Maternal Grandmother Diabetes Son No problems noted. Son No problems noted. Social History Smoking/Tobacco Use Status: Former Tobacco Use tobacco type: cigarettes Quit Date: 11/11/79 Second Hand Exposure: Yes Smoking risk assessment performed?: Yes Alcohol Intake: current Alcohol Intake frequency: a few times a month Alcohol type: wine Drug use: Never Substance use type: does not use Adopted: No Caregiver/Support person: No Foster care: No Household members: spouse Housing: house Number of Children: 2 number of grandchildren: 3 Communication Needs: None Education Level: college Do you need help understanding health information?: Rarely current occupation: Retired Pets and animals: Yes Pets and animals: dog(s) Sexually active: Yes Do you think of yourself as: straight/heterosexual Current gender identity: female What is your relationship status?: How often do you talk on the phone with friends or family?: twice per week How often do you get together with friends or relatives?: twice per week Do you belong to any clubs or organized social groups?: no Panel score (0-1 are the most socially isolated patients): 2 Agree to transfusion: Yes Seatbelt use: always Drive 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
--- NOTE | 2024-05-12 16:41 | CHAPLAIN ---
Syeda was up in the chair when I visited this morning. She said she thought she was going home today. She winced a couple of times when moving. I explained my role and offered support.
--- NOTE | 2024-05-12 16:53 | CMDISCH_ITS ---
Date of service: 05/12/24 Time of Service: 16:53 LACE Index Scoring Tool Questions: Length of Stay (in days): 2 Was the patient admitted via the E.D.?: Yes E.D. Visits: 1 Answers: Total Score: 6 Risk of Readmission: Low Risk Care Management Discharge Plan Reason for Hospitalization: Flank pain Discharge Plan: Syeda returned home today with no new services. Per MD, she will return to [facility] through the ED on Saturday and ask for Dr. Franklin to be paged; he will remove her ADALID drain at that time, around 10am. She was driven home via private vehicle by family. She will follow up with her PCP and discharge plan of care. She was happy to be going home. Patient/Family Education Needs: Review discharge instructions and limitations, discussion of self care needs including ask me three. SDOH Health Related Social Needs: No Data to Display
== END 2024-05-12 14:55 | disposition home or self-care (01) ==
LOC: ER 15:59 → MS 21:30
PROVIDERS: Nurse Practitioner Family; Admitting Provider Student in an Organized Health Care Education/Training Program; Emergency Provider Physician Assistant; PCP Nurse Practitioner Family; Visit Provider Student in an Organized Health Care Education/Training Program
PROC: 0FT44ZZ Resection of Gallbladder, Percutaneous Endoscopic Approach (ICD-10-PCS; CPT 47562; principal; 2024-05-11 16:25)
DX: K80.00 Calculus of gallbladder with acute cholecystitis without obstruction (principal); Z87.891 Personal history of nicotine dependence; Z80.0 Family history of malignant neoplasm of digestive organs; E87.6 Hypokalemia; M48.54XA Collapsed vertebra, not elsewhere classified, thoracic region, initial encounter for fracture
CPT/HCPCS: 47562; 00123; 36415; 78227; 80053; 83690; 96361; 96365; 96366; 96375; 96376; 99222; 99285; 71046; 72146; 76700; 83605; 85025; 88304; G0378; J0131; J0665; J1100; J1170; J1644; J1885; J2001; J2270; J2371; J2405; J2543; J2704; J3010

== ENCOUNTER 2024-05-15 09:43 | Emergency (ER) | payer MEDICARE, SELFPAY ==
[2024-05-15 09:45] VITALS: BP 137/78; PULSE 78; RESP 10; TEMP 37.3; O2SAT 97
--- NOTE | 2024-05-15 09:51 | ED.GENADUL_ITS ---
Discharge Plan Disposition Patient Disposition: Home Condition: Stable Discharge Details Clinical Impression: Encounter for change or removal of drains Primary Care Provider: Johan Zamarripa ED Provider: Kathy Boucher Home Meds and New Rx's Prescriptions: Continued Complete Multivitamin tablet 1 tab PO DAILY ibuprofen 200 mg capsule 200 mg PO Q6H PRN methocarbamol 500 mg tablet 500 mg PO Q6H PRN (Reason: Back pain or spasm) Qty: 30 0RF calcium carb and citrate-vitD3 1 EACH tablet extended release 1 ea PO DAILY Discharge Instructions Instructions: How to Prevent Surgical Site Infections Additional Instructions: Please follow your instructions that were received by the surgery team. Follow- up as directed. Be seen sooner for any signs of infection, fever, vomiting or concerns. Referrals: Johan Zamarripa, CORE ASSEMBLY SUPERVISOR [Primary Care Provider] - Radha Jane DO [OSTEOPATHIC DOCTOR] - [facility] General Mode of arrival: ambulatory . Date/Time Provider Initiated Documentation: 05/15/24 09:44 . Limitations to Documentation: no limitations . Information obtained by: patient, RN notes reviewed and old records reviewed . HPI Narrative: 68-year-old female status post cholecystectomy on 05/11/2024 presents to the ER as instructed by on-call surgeon to have ADALID drain removed. Patient denies any abdominal pain does report dry heaves this morning and some chills. Temp 37.3 upon arrival. She did take Tylenol prior to arrival. Discharged from [facility] yesterday. Other past medical history includes and hysterectomy colonoscopy. Related Data Home Medications Medication Instructions Recorded Confirmed calcium carb,cit ER 600 mg-vit D3 1 ea PO DAILY 08/19/17 05/15/24 12.5 mcg (500 unit) tablet,ext.rel multivitamin,eo-[id number] 1 tab PO DAILY 07/15/18 05/15/24 (Complete Multivitamin tablet) ibuprofen 200 mg capsule 200 mg PO Q6H PRN 08/28/21 05/15/24 methocarbamol 500 mg tablet 500 mg PO Q6H PRN Back pain or 05/08/24 05/15/24 spasm #30 tabs Previous Rx's Medication Instructions Recorded methocarbamol 500 mg tablet 500 mg PO Q6H PRN Back pain or 05/08/24 spasm #30 tabs Allergies Allergy/AdvReac Type Severity Reaction Status Date / Time No Known Allergies Allergy Verified 05/15/24 10:04 General ZIGGY: 3 Exam Narrative Exam Narrative: Constitutional: Alert and oriented x3. Appears stated age. Normal body habitus. Chest: RRR, Normal S1, S2, distal pulses intact. Resp: Lungs clear to auscultation bilaterally, no wheezes, rales, or rhonchi. Abdomen: Soft, non-distended, does have healing laparoscopic dressing noted to the upper mid abdomen, does have a ADALID drain noted to her right lower abdomen with small amount of bloody drainage noted. Nontender with palpation all 4 quadrants. Hematologic/Lymphatic: no lymphadenopathy. Medical Decision Making 68-year-old female presents to the ER status post cholecystectomy done on May 11 with complications. Patient was discharged from [facility] yesterday with a ADALID drain in place. She is presenting inquiring on having the drain removed. She does have some bloody discharge noted in the ADALID drain. She reports at [facility] they were draining the ADALID drain 5-[address] a stent per patient report. She reports some dry heaves this morning she does have a 99.2 temp upon arrival. Denies any significant pain. There is some bloody discharge around the dressing. No other significant complaints at this time. She did take Tylenol prior to arrival. 1005: Surgeon on-call Dr. Franklin paged. 1045: Spoke with Dr. Franklin he will see patient. 1107: Dr. Franklin here at bedside for ADALID drain removal. Patient discharged from department with instructions to follow-up with surgical team for further management and treatment. Given strict return instructions to return if any worsening. This text was generated using Chromasunation system, please disregard any oddities of phrase or misspellings. Medical Records Medical records reviewed: Yes I reviewed the patient's medical records. Quality:SDOH Health Related Social Needs: No Data to Display PFSH All Active Problems (Updated 05/15/24 @ 11:13 by Kathy Boucher NP) Encounter for change or removal of drains (Acute) Rhomboid muscle pain (Acute) Right flank pain (Acute) Seborrheic keratoses (Acute) Tendonitis of left hip (Acute) Fall (Acute) Elevated BP without diagnosis of hypertension (Acute) Encounter for annual physical exam (Acute) Increased body mass index (BMI) (Acute) Painless rectal bleeding (Acute) Fatigue (Acute) Actinic keratoses (Acute) Family history of GI malignancy (Acute) colon ca-mother. Last colonoscopy was 08/26/17. She does not think she wants to repeat in the future. Family hx-breast malignancy (Acute) Sister at age 38. She continue with yearly mammograms. Medical History Thickening of wall of gallbladder Surgical History section 1980,1982 Abdominal hysterectomy (~02/2013) Colonoscopy - MAC (08/26/17) Family History Mother , AGE 76 Diabetes Colorectal cancer Father , AGE 49 Heart disease Sister , AGE 38 Hyperlipidemia Breast cancer Sister , age 76 Diabetes Essential hypertension Parkinsons Anemia Sister Diabetes Maternal Grandfather Heart disease Paternal Grandfather , age 60 Heart disease Maternal Grandmother Diabetes Son No problems noted. Son No problems noted. Social History Smoking/Tobacco Use Status: Former Tobacco Use tobacco type: cigarettes Quit Date: 11/11/79 Second Hand Exposure: Yes Smoking risk assessment performed?: Yes Alcohol Intake: current Alcohol Intake frequency: a few times a month Alcohol type: wine Drug use: Never Substance use type: does not use Adopted: No Caregiver/Support person: No Foster care: No Household members: spouse Housing: house Number of Children: 2 number of grandchildren: 3 Communication Needs: None Education Level: college Do you need help understanding health information?: Rarely current occupation: Retired Pets and animals: Yes Pets and animals: dog(s) Sexually active: Yes Do you think of yourself as: straight/heterosexual Current gender identity: female What is your relationship status?: How often do you talk on the phone with friends or family?: twice per week How often do you get together with friends or relatives?: twice per week Do you belong to any clubs or organized social groups?: no Panel score (0-1 are the most socially isolated patients): 2 Agree to transfusion: Yes Seatbelt use: always Drive intox or ride w/intox dedicated intermodal truck driver: No Working smoke detector in home: Yes Firearms in home: Yes Firearms unloaded and locked: Yes Do you feel safe at home: Yes Do you feel safe in your relationship?: Yes Victim of physical abuse: No Victim of emotional abuse: No Victim of sexual abuse: No
--- NOTE | 2024-05-15 10:51 | W.PM.PROGNOT ---
Date of Service Date of service: 05/15/24 Time of Service: 10:51 Assessment and Plan Assessment and plan (1) Encounter for change or removal of drains: Status: Acute Assessment and plan: 68-year-old woman who was admitted in the hospital to thoroughly workup atypical right flank pain. She never had any abdominal pain and no Torrez sign but did end up having wall thickening on ultrasound and HIDA scan suggestive of cholecystitis. She went to the operating room and her gallbladder did appear inflamed and was removed. She had an extremely short cystic duct (1-2 mm at most) and we had concern that the clip could easily fall off of this, and that is why a drain was left in place. Despite this presumptive scenario, based off of her description of her events at [facility] (I do not have any of the records), it sounds like a bile leak was not actually proven and certainly it does not sound like there was any bile in her ADALID drain which was in the gallbladder fossa and along the hepatic flexure, under the liver margin. Difficult to understand how she might have a bile leak that was not making it into the surgical drain on postoperative day 2. Further, it does not sound like there cholangiogram showed a leak from her report. They did leave a stent which makes me suspect that they were at least concerned about a bile leak evolving if 1 was not already present. Unfortunately, this has not led to resolution of her symptoms and she is still having flank pain. At the bedside today, the drain has scant serosanguineous, thin fluid in it. There is absolutely no evidence of any bile in it. I removed it at the bedside. Interestingly enough, removing the drain caused severe, excruciating pain out of proportion to any drain I have ever removed before. There is no unusual resistance to it and it was very easy to remove. It is just interesting to me because it seems like her level of pain has been out of proportion all along this entire time. Removing the drain hurt her at her flank - it was not at the skin or in her abdomen. Again, the level of pain was severe for the few seconds of drain removal. It makes me wonder if she has some sort of inflammatory liver issue going on, because in truth, that is the only thing that would have been moving or irritated by pulling the drain out. And why it would hurt in her back, I have no idea? The acute severe pain went away as soon as the drain was out. Of course the residual flank pain remains. She has outpatient follow-up in the office sometime in the next week or so. I encouraged her to keep this appointment as well as follow-up with her PCP because of her back fractures. This really could be muscle spasm and posturing issues related to spine fractures and she does endorse that the muscle relaxant medication is the only thing that actually helps her feel little better. She knows and reiterates to me verbally that I was skeptical her gallbladder was causing her pain. Unfortunately, the fact that her pain still remains after her gallbladder is out really still supports that the pain is from something other than her gallbladder despite the intraoperative findings of an inflamed gallbladder. Overall plan: Will see her in the office in the next 7 to 10 days. We are still waiting for pathology at this time. She should otherwise follow-up with her PCP in regards to the back pain and next best steps. Subjective Subjective Interval history since last seen: Syeda comes in for drain removal. Unfortunately, she continues to have the right flank pain now, 4 days after her gallbladder surgery. She denies any abdominal pain. Her incisions do not bother her. She reports that the pain was still so severe after the gallbladder surgery that her took her to [facility]. She says: it took them 12 hours to decide whether or not to admit me. They did a bunch more imaging. They were worried that maybe I was leaking bile so they put a stent in me, but told me they never found a leak so the stent is just in case Since it is still hurting, they then told me it is probably a strained muscle and discharged me. She denies that the drain was anything other than red, clear fluid. She specifically says it was not ever green-colored. No fevers. She is eating just fine. Her only complaint is pain. Exam Narrative Exam Narrative: General: Nontoxic, interactive and overall appears comfortable despite subjective complaints of significant flank pain. There is no scleral icterus. Neuro: Alert and oriented x 3 Psych: Reasonable mood and affect, good insight and understanding into her condition Chest: Nonlabored breathing Heart: Regular Abdomen: Soft, nondistended and nontender. Her incision sites look perfect. The drain has 5-10 cc of thin serosanguineous fluid in the bulb. There is no bile in this. I removed the drain at the bedside. Objective Last Vital Signs Temp 99.2 F 05/15/24 09:45 Pulse 78 05/15/24 09:45 Resp 10 L 05/15/24 09:45 BP 137/78 05/15/24 09:45 Pulse Ox 97 05/15/24 09:45 Time Spent with Patient Time Spent with Patient: 25-34 minutes Time was spent: preparing to see the patient(eg.review tests), indepentently interpreting results, counseling the patient and care coordination
--- NOTE | 2024-05-15 11:20 | NUR.NOTE ---
Nursing Note: ADALID drain removed by Dr. Franklin patient tolerated procedure well.
== END 2024-05-15 11:53 | disposition home or self-care (01) ==
PROVIDERS: Emergency Provider Registered Nurse Emergency; PCP Nurse Practitioner Family
DX: Z48.03 Encounter for change or removal of drains (principal); Z90.49 Acquired absence of other specified parts of digestive tract; Z87.891 Personal history of nicotine dependence
CPT/HCPCS: 99283

== ENCOUNTER → 2024-06-04 00:36 | Outpatient (CLI) | payer MEDICARE, SELFPAY ==
--- NOTE | 2024-06-04 06:45 | DI.DEXA_ITS ---
Exam(s) XR DEXA BONE DENSITY W/WO DERIK EXAM: XR DEXA BONE DENSITY W/WO DERIK CLINICAL HISTORY: compression fractures T spine,SCREENING FOR OSTEOPOROSIS IN POSTMENOPAUSAL TECHNIQUE: COMPARISON: DX DEXA BONE DENSITY WITH DERIK from 08/06/2017 CR XR LUMBAR SPINE AP, LAT from 08/24/[address] ABDOMEN PELVIS W from 05/05/2024 FINDINGS: Lateral Spine Image: There is a T12 compression fracture deformity present on prior examination of th e abdomen and pelvis from 05/05/2024. This was not present on the prior DEXA scan from 2016. Left hip: Total T-Score: -1.9. This compares to -1.5 on the prior examination. Total Z-Score: -0.4 T- and Z-scores: Findings are consistent with osteopenia. There is osteoporosis in the femoral neck with a T-score of -3.1. Lumbar Spine: Total T-Score: -2.9. This compares to -3.4 on the prior examination. Total Z-Score: -0.9 T- and Z-scores: Findings are consistent with osteoporosis. IMPRESSION: Osteoporosis in the femoral neck and lumbar spine.
== END ==
PROVIDERS: PCP Nurse Practitioner Family; Visit Provider Nurse Practitioner Family
DX: Z78.0 Asymptomatic menopausal state (principal); M81.8 Other osteoporosis without current pathological fracture
CPT/HCPCS: 77080

== ENCOUNTER 2024-06-04 12:24 | Outpatient (CLI) | payer MEDICARE, SELFPAY ==
[2024-06-04 12:25] LABS: Abs Immature Grans 0.03 10^3/uL (0.0-0.06); Absolute Basophil Count 0.04 10^3/uL (0.0-0.2); Absolute Eosinophil Count 0.06 10^3/uL (0.0-0.7); Absolute Lymphocyte Count 1.18 10^3/uL (1.2-3.4); Absolute Monocyte Count 0.63 10^3/uL (0.1-0.8); Absolute Neutrophil Count 3.89 10^3/uL (1.2-6.7); Basophils % 0.7 %; HCT 44.3 % (36.0-46.0); HGB 14.5 g/dL (11.2-15.7); Immature Grans % 0.5 %; Lymphocytes % 20.2 %; MCH 27.6 pg (27.0-33.0); MCHC 32.7 % (32.0-36.0); MCV 84 fL (80-95); MPV 9.8 fL (8.0-11.0); Monocytes % 10.8 %; Neutrophils % 66.8 %; Platelet Count 269 10^3/uL (130-400); RBC 5.25 10^6/uL (3.93-5.22); RDW-SD 39.6 fL; WBC 5.83 10^3/uL (4.4-10.8)
[2024-06-04 12:52] LABS: ALT 20 U/L (14-59); AST 16 U/L (15-37); Albumin 3.5 g/dL (3.4-5.0); Alkaline Phosphatase 110 U/L (46-116); Bilirubin, Direct 0.2 mg/dL (0.0-0.2); Bilirubin, Total 0.73 mg/dL (0.2-1.0); C-Reactive Protein 4.25 mg/dL (<or=0.5); Lipase 87 U/L (16-77); Total Protein 7.4 g/dL (6.4-8.2)
== END 2024-06-04 12:25 | disposition home or self-care (01) ==
LOC: LBO 12:25
PROVIDERS: PCP Nurse Practitioner Family; Visit Provider Surgery
DX: R03.0 Elevated blood-pressure reading, without diagnosis of hypertension (principal); M81.0 Age-related osteoporosis without current pathological fracture; R63.8 Other symptoms and signs concerning food and fluid intake; K62.5 Hemorrhage of anus and rectum; R10.9 Unspecified abdominal pain; Z80.0 Family history of malignant neoplasm of digestive organs; G89.18 Other acute postprocedural pain; T85.528A Displacement of other gastrointestinal prosthetic devices, implants and grafts, initial encounter; Z98.890 Other specified postprocedural states
CPT/HCPCS: 36415; 80076; 83690; 85025; 86140

== ENCOUNTER 2024-06-19 00:16 | Outpatient (CLI) | payer MEDICARE, SELFPAY ==
--- NOTE | 2024-06-19 07:00 | DI.CT_ITS ---
Exam(s) CT ABDOMEN PELVIS W EXAM: CT ABDOMEN PELVIS W CLINICAL HISTORY: R flank and abd pain s/p lap bev,family h/o gi ca,rectal bleeding. TECHNIQUE: Imaging Protocol: Axial computed tomography images with coronal and sagittal reformatted images were created and reviewed CONTRAST MATERIAL: Intravenous: Omnipaque 350 Contrast volume:100 ml Oral: yes COMPARISON: CT CT ABDOMEN PELVIS W from 05/05/2024 FINDINGS: ABDOMEN and PELVIS: Lung Bases: No acute findings. Liver: Mild hepatic steatosis. Normal size. No suspicious mass. Gallbladder and biliary tract: Status post cholecystectomy. Stent noted in common bile duct extendin g into duodenum. No biliary dilation. Pancreas: Normal density. No abnormal calcifications or inflammatory process. No evidence of mass. Spleen: Normal. Kidneys: Normal size, contour and axis. No radiodense stones. No obstructive uropathy. No suspicious masses seen. Adrenal glands: No masses seen. Vasculature: Abdominal aorta non-dilated. Soft tissues: Unremarkable. Bladder: No gross wall thickening. No calculi.No focal mass. Bowel: No obstruction. No bowel wall thickening. Appendix normal. Mild diverticulosis lower descen ding and sigmoid colon. No evidence of diverticulitis. No visible mass. Peritoneal cavity: No ascites. No focal collection. No mesenteric inflammatory response. Bones: Stable severe T12 compression fracture. No new compression fractures. Reproductive organs: Status post hysterectomy. Lymph nodes: No pathologically enlarged lymph nodes. IMPRESSION:: No acute abnormality in the abdomen or pelvis. Common bile duct stent. No biliary dilatation. Mild diverticulosis. No evidence of diverticulitis or mass. Stable severe T12 compression fracture. RADIATION DOSE DELIVERED: Total DLP DATA REPOSITORY: All CT scans at this facility are submitted to the National Radiology Data Registry (NRDR) Dose Index Registry (DIR) with the [employer] (ACR). RADIATION OPTIMIZATION: All CT scans at this facility use at least one of these dose optimization te chniques: automated exposure control; mA and/or kV adjustment per patient size (includes targeted exa ms where dose is matched to clinical indication); or iterative reconstruction.
[2024-06-19] MEDS: Breeza Beverage 473 ML BTL PO ×2 (08:26→08:27)
[2024-06-19] MEDS: Omnipaque 350 MG/ML 50 ML BTL PO (08:27)
[2024-06-19 08:36] LABS: CREATININE 0.8 mg/dL (0.55-1.02); Estimated GFR 79.71 (mL/min/1.73m2)
[2024-06-19] MEDS: Omnipaque 350 MG/ML 100 ML BTL IJ (10:14)
[2024-06-19] MEDS: Normal Saline - Diluent 50 ML VIAL IJ (10:17)
== END 2024-06-19 00:36 ==
PROVIDERS: PCP Nurse Practitioner Family; Visit Provider Surgery
DX: K91.89 Other postprocedural complications and disorders of digestive system (principal); K62.5 Hemorrhage of anus and rectum; Z90.49 Acquired absence of other specified parts of digestive tract; Z80.0 Family history of malignant neoplasm of digestive organs
CPT/HCPCS: 74177; 82565; J3490; Q9967

== ENCOUNTER → 2024-08-13 08:14 | Outpatient (BNVA) | payer MEDICARE, SELFPAY | PROVIDERS: PCP Nurse Practitioner Family; Referring Provider Nurse Practitioner Family; Visit Provider Physical Therapy Assistant | DX: Z12.11 Encounter for screening for malignant neoplasm of colon (principal) ==

== ENCOUNTER 2024-08-24 07:34 | Day surgery (SDC) | payer MEDICARE, SELFPAY ==
--- NOTE | 2024-08-23 12:26 | W.PM.DSUDISC ---
Date of service: 08/24/24 Time of Service: 09:12 Discharge Plan Disposition Patient Disposition: Home Condition: Good Discharge Details Reason For Visit: screening colonoscopy Attending Provider: Kevin Walsh Primary Care Provider: Johan Zamarripa Home Meds and New Rx's Prescriptions: Continued Complete Multivitamin tablet 1 tab PO DAILY ondansetron 4 mg tablet,disintegrating 4 mg PO Q6H PRN (Reason: nausea and vomiting) Qty: 5 0RF calcium carb, citrate-vit D3 1 EACH tablet extended release 1 ea PO DAILY Discontinued bisacodyl [Dulcolax (bisacodyl)] 5 mg tablet,delayed release (DR/EC) 5 mg PO ONCE Qty: 4 0RF Rx Instructions: Take per colonoscopy instructions provided by ordering providers office polyethylene glycol 3350 17 gram/dose powder 17 g PO ONCE Qty: 238 0RF Rx Instructions: Take per colonoscopy instructions provided by ordering providers office Discharge Instructions Instructions: Diverticulosis Additional Instructions: Syeda, we are able to complete your colonoscopy today without any difficulty. Your prep was excellent, and I could see everything fine. I did not see any signs of tumors or polyps. Incidentally, you do have a little bit of diverticulosis. Diverticula are little weak spots in the muscular part of the colon wall that causes the inside lining to pooch outward slightly. These can get infected or inflamed. When that happens, patients typically have quite a bit of pain that usually on the left side of their abdomen. They usually feel pretty sick and are often times treated with antibiotics. Hopefully, your diverticula will never bother you. I did attach a little bit of information here about diverticulosis in general. As we talked about beforehand, because of your family history, I would recommend a 5-year screening interval for your next colonoscopy. This is just a recommendation, however, and I would encourage you to keep an open dialogue with your primary care physician. If you have any questions at all or need anything in the meantime, please do not hesitate to ask. 1. If tolerated, consume a soft, low fiber diet for 1-2 days. 2. Do not drive, drink alcohol, operate machinery, make critical decisions, or do activities that require coordination or balance for 24 hours. 3. Because air was put into your colon during the procedure, expelling air from your rectum (passing gas or farting) is normal. 4. You may not have a bowel movement for 1-3 days because of the colonoscopy prep. This is normal. 5. Go directly to the emergency room if you notice any of the following: Develop chills (warm to touch), or if you have a thermometer and your temperature is above 101 Difficulty breathing or difficultly swallowing Persistent vomiting Severe abdominal pain, other than gas cramps Severe chest pain Black, tarry stools Any bleeding ? exceeding one tablespoon 6. Call your physician if the site where your intravenous was started becomes red, swollen, painful, and warm to touch. 7. Your physician has reviewed your pre-procedure medications. Please continue to take those medications as previously ordered. You will be given specific information/education regarding any changes to your medications before leaving. Activity:: Activity as Tolerated Diet:: As Tolerated Discharge Orders Discharge Orders: Discharge Order (Routine); Ordered 08/23/24 Ordered By: Kevin Walsh DS: Diagnosis Discharge Diagnosis (1) Encounter for screening colonoscopy: Status: Acute Asessment and Plan: Negative screening colonoscopy; based on family history recommend 5-year interval follow-up
--- NOTE | 2024-08-23 12:27 | COLE_ITS ---
Date of service: 08/24/24 Time of Service: 09:15 Colonoscopy Report Date of procedure: 08/24/24 Pre-op diagnosis general: screening colonoscopy Post-op diagnosis procedure note: other (Diverticulosis) Procedure: colonoscopy Surgeon: Kevin Walsh Anesthesia Type: General:No Airway Estimated blood loss (mL): 0 Pathology: none sent Complications: None Disposition: same day Indications: Syeda is a 69 year old woman who needs her next screening colonoscopy Prep: Miralax/Dulcolax Procedure Start Time: 08:59 Procedure End Time: 09:08 Retraction Time: 6 Findings: Diverticulosis; otherwise negative screening colonoscopy Procedure Description: After the induction of anesthesia, and with the patient in left lateral decubitus position, I began by performing an external anorectal exam.? Perineum and skin were normal, as was the anal verge.? Next, I performed a digital rectal exam.? I did not appreciate any abnormal findings.? Next, I advanced a colonoscope into the rectal vault.? I performed retroflexion.? This appeared normal.? Using insufflation, I then advanced the colonoscope beyond the rectal folds and into the sigmoid colon before advancing towards the cecum.? The quality of the prep was outstanding.? The scope was noted to be in the cecum by identification of the ileocecal valve and appendiceal orifice.? I then began withdrawing the colonoscope using repeated irrigation as necessary for full evaluation of the colonic mucosa. There was some sigmoid diverticulosis. once the scope was withdrawn to the level of the rectum, great care was taken to examine portions of the rectal folds.? Finally, the scope was withdrawn and the patient was brought to the same-day surgery recovery unit as the anesthetic wore off. ?The findings and instructions were shared with the patient prior to discharge. Creston Bowel Prep Creston Bowel Prep Right Colon: 3 Left Colon: 3 Transverse Colon: 3 Total Score: 9
[2024-08-24 07:15] VITALS: BP 121/75; PULSE 90; RESP 16; TEMP 37; O2SAT 96
--- NOTE | 2024-08-24 08:21 | W.ANESPRE ---
General Info Date of Service Date Performed: 08/24/24 Height: 4 ft 11 in Weight: 68.4 kg Body Mass Index (BMI): 30.4 Surgical Procedure: Operation Date: 08/24/24 09:05 Proposed Procedure Side Surgeon p Levi Walsh MD Meds Allergies and Home Medications Allergies Allergy/AdvReac Type Severity Reaction Status Date / Time oxycodone AdvReac Intermediate Nausea Uncoded 08/24/24 08:02 Home Medication ?Medication ?Instructions ?Recorded calcium ER 600 mg (as carb,cit)-D3 1 ea PO DAILY 08/19/17 12.5 mcg (500 unit) tablet, ext.rel multivitamin,se-bqmi-tdisbzsh 1 tab PO DAILY 07/15/18 (Complete Multivitamin tablet) ondansetron 4 mg disintegrating 4 mg PO Q6H PRN nausea and 08/13/24 tablet vomiting #5 tabs Current Visit Medications: Current Medications Generic Name Dose Route Start Last Admin Trade Name Freq PRN Reason Stop Dose Admin Hyoscyamine Sulfate 0.125 mg 08/24/24 06:00 Hyoscyamine 0.125 Mg Sl/Oral/Chew SL 09/23/24 05:59 DIRECTED PRN Ringer's Solution 1,000 mls @ 80 mls/hr 08/24/24 06:00 IV 09/20/24 23:59 [facility] IV Miscellaneous Supplies 1 each 08/24/24 06:00 Iv Access IV 09/20/24 23:59 DIRECTED KAT Ondansetron HCl 4 mg 08/24/24 06:00 Ondansetron 4 Mg/2 Ml Vial IVP 09/23/24 05:59 Q4H PRN PRN Nausea / Vomiting Sodium Chloride 0 ml 08/24/24 06:00 Normal Saline Flush 10 Ml Syr IV 09/20/24 23:59 PRN PRN Sodium Chloride 0 ml 08/24/24 06:00 Normal Saline 10 Ml Vial IJ 09/20/24 23:59 DIRECTED PRN Sterile Water 0 ml 08/24/24 06:00 Water,Injection,Sterile 10 Ml Vial IJ 09/20/24 23:59 DIRECTED PRN PFSH Active Problems Active Problems: Problem Status Onset Code Encounter for screening colonoscopy Acute Z12.11 Diverticula of colon Acute K57.30 Compression fracture of T12 vertebra Acute S22.080A Postoperative pain Acute G89.18 Osteoporosis of lumbar spine Acute M81.0 Rhomboid muscle pain Acute M79.18 Right flank pain Acute R10.9 Seborrheic keratoses Acute L82.1 Tendonitis of left hip Acute M76.892 Fall Acute W19.XXXA Elevated BP without diagnosis of hypertension Acute R03.0 Encounter for annual physical exam Acute Z00.00 Increased body mass index (BMI) Acute R63.8 Painless rectal bleeding Acute K62.5 Fatigue Acute R53.83 Actinic keratoses Acute L57.0 Family history of GI malignancy Acute Z80.0 Family hx-breast malignancy Acute Z80.3 Medical History Medical History History of uterine leiomyoma Surgical History Surgical History H/O insertion of pancreatic stent removed S/P ERCP History of section S/P laparoscopic cholecystectomy section 1980,1982 Abdominal hysterectomy (~02/2013) [place] [facility] [place] Tobacco Smoking/Tobacco Use Status: Former Tobacco Use Passive smoking exposure: Yes Second hand exposure: Yes Alcohol Alcohol Intake: current Alcohol intake frequency: a few times a month Alcohol type: wine Substance Use Substance use: Never Substance use type: does not use Vital Signs and Lab Results Vital Signs Most Recent Vital Signs in EMR: Most Recent Vital Signs Temp Pulse Resp BP Pulse Ox 37 C 90 16 121/75 96 08/24/24 07:15 08/24/24 07:15 08/24/24 07:15 08/24/24 07:15 08/24/24 07:15 Lab Results Blood Type / Crossmatch: No Data to Display Complete Blood Count: No Data to Display Complete Metabolic Panel: No Data to Display Liver Function Panel: No Data to Display Coagulation Panel: No Data to Display Cardiac Panel: No Data to Display Arterial Blood Gas: No Data to Display Venous Blood Gas: No Data to Display Pancreas Panel: No Data to Display Thyroid Panel: No Data to Display Infectious Disease: No Data to Display Blood Cultures: No Data to Display Toxicology Panel: No Data to Display Anesthesia Assessment and Plan Anesthesia History Personal History: No History of Anesthesia Complications Family History: No Family History of Anesthesia Complications Exercise Tolerance Exercise Tolerance: Metabolic Equivalents>4 Cardiac & Pulmonary Exam Cardiac Exam: Normal S1/S2 Heart Sounds Pulmonary Exam: Clear Bilateral Breath Sounds Implantable Cardiac Device Does patient have a Pacemaker or an ICD?: No Airway Exam Known Difficult Airway: No Mallampati Class: 3 Mouth Opening: Normal (> 3cm) Thyromental Distance: Greater than 3 cm Neck Range of Motion: Full ROM Neck Circumference: Normal Teeth Condition: Normal Dentition ASA Classification ASA Score: ASA 2 Emergency Case?: No NPO Status NPO Status: NPO Clears >2 hours, Solids >8 hours Anesthesia Plan Resuscitation Status: Full Code Anesthesia Technique: General Anesthesia Airway Planned: Natural Airway Monitors Used: Standard Monitors Preoperative Comments:: 69 yo female for colo. Sig PMHx: smoker, occ EtOh. denies major. Appropriatly NPO Denies GERD/reflux. [place] [facility] [place] prop, natural airway, no issues. - [facility] [place], mac 3 grade 1, no issues. - lap bev, glide 3 2b after unable to visualize with DL. easy mask. - [place], fent/midaz, prop, natural airway, no issues.
[2024-08-24 08:24] VITALS: BMI 30.4
[2024-08-24] MEDS: Lactated Ringers 1,000 ML 80 ML IV (08:36)
[2024-08-24 09:12] VITALS: BP 97/56; PULSE 78; RESP 16; TEMP 36.5; O2SAT 95
--- NOTE | 2024-08-24 09:31 | W.ANESPOSTOP ---
Postoperative Evaluation Date, Time and Location Date Performed: 08/24/24 Time Performed: :24 Patient Location: Day Surgery Unit Vital Signs Most Recent Imported Vital Signs: Most Recent Vital Signs Temp Pulse Resp BP Pulse Ox 36.5 C 78 16 97/56 L 95 08/24/24 09:12 08/24/24 09:12 08/24/24 09:12 08/24/24 09:12 08/24/24 09:12 Pain Score Most Recent Pain Score: Most Recent Pain Score Pain Level 0 08/24/24 09:12 Assessment Mental Status: Awake (Alert & Oriented to Patient Baseline) Airway and Respiratory Function: Patent airway with normal (patient baseline) respiratory exam Cardiovascular Function: Hemodynamically Stable Hydration Status: Adequately Hydrated Nausea & Vomiting: No Nausea or Vomiting Pain: Pt. Denies Any Pain Peripheral Nerve Block: Patient did not receive a nerve block
[2024-08-24 09:34] VITALS: BP 137/81; PULSE 79; RESP 16; TEMP 36.1; O2SAT 99
== END 2024-08-24 09:50 | disposition home or self-care (01) ==
LOC: SUR 07:35
PROVIDERS: PCP Nurse Practitioner Family; Visit Provider Surgery
PROC: 0DJD8ZZ Inspection of Lower Intestinal Tract, Via Natural or Artificial Opening Endoscopic (ICD-10-PCS; CPT 45378; principal; 2024-08-24 09:00)
DX: Z12.11 Encounter for screening for malignant neoplasm of colon (principal); K57.30 Diverticulosis of large intestine without perforation or abscess without bleeding; Z80.0 Family history of malignant neoplasm of digestive organs
CPT/HCPCS: G0105; J2704

== ENCOUNTER 2025-09-30 00:56 | Outpatient (CLI) | payer MEDICARE, SELFPAY ==
--- NOTE | 2025-09-30 10:19 | W.NUTRFU ---
Date of service: 09/30/25 Time of Service: 09:00 Nutrition Note NOTE: Met with patient in person for nutrition counseling. 70 yr female pt who presents with desire to lose wt. She would like to lose at least 20# by February 2026 for her [employer] trip. States she is currently 160#. Pt says her wt has been trending up over the past couple of years. States her biggest problem is consuming too many carbs like white breads and sweets. Doesn't like to cook and her family does all the cooking and shopping, which they make high carb, high fat meals like pasta, seafood and canned vegetables coated in butter, etc. Pt finds it difficult resisting those kind of foods that they make. brings lots of sweets into the house like donuts and whoppee pies. Is not much of an exercise person since experiencing some falls in the past and the weather now being a lot colder. Reviewed w/ pt about carb serving sizes and provided a list of carbs she can reference to when planning her meals, etc. Recommended based on her ht and wt that her calorie target should be 1200 to promote wt loss, with 128 g carbs (8 servings/day). Recommended to pt to choose more complex carbs with fiber and emphasizing protein. Would be beneficial to have 3 regular meals a day, especially breakfast since pt currently doesn't normally eat breakfast everyday. Has supper with her family, so we talked about ways she can change up what she eats when she's having her 2 other meals by herself. We also spoke about her current food environment and how changing parts of it may help her with this food journey, like letting her family members who do all the shopping know which products to get her. Pt has osteoporosis and is currently taking a calcium supplement, but we also spoke about other high calcium food sources like broccoli, almonds, and legumes to include in her diet. Pt expresses that she has an understanding of what to do since she's been through this before, but has some difficulty implementing action steps. A menu that contains her calorie/carb targets alongside a carb list that has serving sizes seems to be like a good first step in creating some behavior change. Will send a sample menu to pt with foods that match her calorie and carb requirements with an emphasis on fiber and limiting added sugars that contains [id number] food items with product recommendations, as pt wants to spend as little time in the kitchen as possible. Pt is aware she can contact the dietitian if she has any questions or would like a follow-up appointment. Time Spent in Nutritional Counseling and Treatment: 60 mins
== END 2025-09-30 00:57 | disposition home or self-care (01) ==
LOC: DS 00:56
PROVIDERS: PCP Nurse Practitioner Family; Visit Provider Dietitian, Registered
DX: R63.8 Other symptoms and signs concerning food and fluid intake (principal)
CPT/HCPCS: 00123; 97802